=== PATIENT | female | born 1945 | race Caucasian/White ===

== ENCOUNTER → 2020-02-04 12:28 | Outpatient (CLI) | payer MEDICARE, OTHER, SELFPAY ==
--- NOTE | 2020-02-04 | DI.MRI.S_ITS ---
PROCEDURE: MR SHOULDER RT WO CON INDICATIONS: Unspecified rotator cuff tear or rupture TECHNIQUE: Noncontrast oblique coronal T2 fast spin echo with fat saturation, oblique sagittal T1 spin echo and T2 fast spin echo with fat saturation, axial T1 spin echo and T2 fast spin echo with fat saturation through the shoulder. COMPARISON: [facility], MR, SHOULDER WITHOUT CONTRAST, 02/01/2016, 14:56. FINDINGS: Image quality: Excellent. Rotator cuff: There is full-thickness rupture of distal supraspinatus and anterior to mid fibers of distal infraspinatus at their insertions on humeral head with up to 3.9 centimeter medial retraction of torn tendon fibers to the level of glenoid. Posterior fibers of distal infraspinatus shows moderate grade articular surface partial-thickness tear. Distal subscapularis tendinosis and low to moderate grade intrasubstance partial-thickness tear is seen. Sagittal images demonstrate moderate to severe supraspinatus muscle atrophy. Bones and bursae: No bone marrow contusions or fractures. Moderate acromioclavicular joint and glenohumeral joint osteoarthritic changes are seen. Moderate amount of subacromial subdeltoid bursal fluid is also noted. Capsule and soft tissues: In the absence of intra-articular contrast, there is suggestion of focal superior anterior labral tear at 12 to 1 o'clock position. The glenohumeral ligaments appear intact. The long head of the biceps tendinosis and low-grade partial-thickness tear is seen. The rotator interval appears normal, without fibrosis. The coracohumeral ligament is normal in thickness. IMPRESSION: 1. Full-thickness rupture of distal supraspinatus and anterior to mid fibers of distal infraspinatus with up to 3.9 centimeter medial retraction of torn tendon fibers to the level of glenoid. Tendinosis and moderate grade articular surface partial-thickness tear involving posterior fibers of distal infraspinatus. Distal subscapularis tendinosis and low to moderate grade intrasubstance partial-thickness tear. Moderate to severe supraspinatus muscle atrophy. 2. Moderate acromioclavicular joint and glenohumeral joint osteoarthritis. Moderate amount of joint fluid and subacromial subdeltoid bursal fluid. 3. Finding is suspicious for focal superior anterior labral tear at 12 to 1 o'clock position. 4. Tendinosis and low grade intrasubstance partial-thickness tear involving proximal intra-articular portion of long head of biceps. Dictated by: Kartik Car M.D. on 02/04/2020 at 14:17 Approved by: Kartik Car M.D. on 02/04/2020 at 14:24
== END ==
PROVIDERS: PCP Internal Medicine; Referring Provider Internal Medicine; Visit Provider Orthopaedic Surgery
DX: M75.121 Complete rotator cuff tear or rupture of right shoulder, not specified as traumatic (principal); M19.011 Primary osteoarthritis, right shoulder; S46.111A Strain of muscle, fascia and tendon of long head of biceps, right arm, initial encounter
CPT/HCPCS: 73221

== ENCOUNTER → 2020-08-20 12:29 | Outpatient (CLI) | payer MEDICARE, OTHER, SELFPAY ==
--- NOTE | 2020-08-20 12:33 | DI.CT.S_ITS ---
PROCEDURE: CT UE RT WO CON INDICATIONS: Unspecified rotator cuff tear or rupture of right shoulder TECHNIQUE: Noncontrast 1-1.5 mm thick sections acquired from the acromioclavicular joint to the inferior scapula, with coronal and sagittal reformatting. COMPARISON: None. FINDINGS: Image quality: Excellent. Bones: Moderate acromioclavicular joint and glenohumeral joint osteoarthritic changes are seen with inferior marginal osteophyte formation. No acute fracture or dislocation. No suspicious intraosseous lesion. Visualized right upper ribs are grossly intact. Superior migration of humeral head in relation to glenoid is seen. Soft tissues: There is suggestion of high-grade partial to full-thickness rupture of distal supraspinatus at its insertion on the humeral head. Moderate supraspinatus muscle atrophy is seen. No evidence of full-thickness rupture involving distal subscapularis or infraspinatus is seen. No abnormal soft tissue calcifications. There is small to moderate amount of glenohumeral joint effusion. IMPRESSION: 1. Finding is concerning for high-grade partial-thickness to full-thickness rupture involving distal supraspinatus at its insertion on the humeral head. Moderate supraspinatus muscle atrophy. No full-thickness rupture involving distal infraspinatus or subscapularis. No abnormal soft tissue calcification. Small to moderate joint effusion. 2. Moderate acromioclavicular and glenohumeral joint osteoarthritis. No fracture or dislocation. No suspicious intraosseous lesion. Dictated by: Kartik Car M.D. on 08/20/2020 at 16:44 Approved by: Kartik Car M.D. on 08/20/2020 at 16:47
== END ==
PROVIDERS: PCP Internal Medicine; Referring Provider Orthopaedic Surgery; Visit Provider Orthopaedic Surgery
DX: M75.111 Incomplete rotator cuff tear or rupture of right shoulder, not specified as traumatic (principal); M19.011 Primary osteoarthritis, right shoulder
CPT/HCPCS: 73200

== ENCOUNTER → 2020-08-25 10:57 | Outpatient (CLI) | payer MEDICARE, OTHER, SELFPAY ==
[2020-08-25 12:05] LABS: Add Manual Diff / Slide Review NO; Basophils Absolute Auto 0 /uL (0-100); Basophils Percent Auto 0.7 % (0-2); Eosinophils Absolute Auto 200 /uL (0-450); Eosinophils Percent Auto 3.7 % (2-4); Hematocrit 40.5 % (36-46); Hemoglobin 13.7 g/dL (12.0-16.0); Lymphocytes Absolute Auto 1000 /uL (1100-4500); Lymphocytes Percent Auto 20.9 % (25-40); Mean Corpuscular Hemoglobin 31.6 PG (26-34); Mean Corpuscular Volume 93.2 fL (80-100); Monocytes Absolute Auto 600 /uL (0-900); Monocytes Percent Auto 13.9 % (3-14); Neutrophils Absolute Auto 2800 /uL (1500-7000); Neutrophils Percent Auto 60.8 % (50-75); Platelet Count 180 X10^3/uL (150-400); Red Blood Cell Count 4.34 X10^6/uL (4.0-5.2); Red Cell Distribution Width 13.4 % (11.6-14.8); White Blood Cell Count 4.6 X10^3/uL (4.5-11.0)
[2020-08-25 12:41] LABS: BUN Creatinine Ratio 33.3 (6-22); Blood Urea Nitrogen 22 mg/dL (7-17); Calcium 9.6 mg/dL (8.4-10.2); Carbon Dioxide 31 mmol/L (22-32); Chloride 99 mmol/L (98-107); Estimated Glomerular Filt Rate > 60.0 mL/min (>60); Glucose 138 mg/dL (80-110); HEMOLYSIS < 15 (0-50); Potassium 4.3 mmol/L (3.4-5.1); Sodium 137 mmol/L (137-145)
== END ==
PROVIDERS: PCP Internal Medicine; Referring Provider Orthopaedic Surgery; Visit Provider Orthopaedic Surgery
DX: Z01.818 Encounter for other preprocedural examination (principal); Z01.812 Encounter for preprocedural laboratory examination
CPT/HCPCS: 36415; 80048; 85025; 93005; 93010

== ENCOUNTER → 2020-09-01 11:40 | Outpatient (CLI) | payer MEDICARE, OTHER, SELFPAY ==
[2020-09-01 12:26] LABS: COVID19 -Nasal RAPID Negative (Negative)
== END ==
PROVIDERS: PCP Internal Medicine; Visit Provider Student in an Organized Health Care Education/Training Program
DX: Z20.822 Contact with and (suspected) exposure to COVID-19 (principal)
CPT/HCPCS: 87635; C9803

== ENCOUNTER 2020-09-02 10:24 | Inpatient (IN) | payer MEDICARE, OTHER, SELFPAY ==
[2020-09-02] VITALS (15 sets, daily range): BP systolic 99–135; BP diastolic 51–75; PULSE 83–107; RESP 8–20; TEMP 35.9–36.9; O2SAT 90–98; BMI 32.9
[2020-09-02] MEDS: LACTATED RINGERS 1,000 ML 42 ML IV ×2 (06:53→09:45)
[2020-09-02] MEDS: ACETAMINOPHEN 325 MG TABLET 975 MG PO ×2 (07:31→19:49)
--- NOTE | 2020-09-02 07:33 | PM.PREOP ---
Pre-operative Note COVID-19 COVID-19 status: Negative Result date/Date tested (Pos, Neg/Pending): 08/31/20 Interval Note History & Physical reviewed/Exam performed by Physician: Yes Changes to H&P: No
[2020-09-02] MEDS: VANCOMYCIN 1,000 MG/200 ML PIGGYBACK 200 MG IV (08:11)
[2020-09-02] MEDS: GENTAMICIN 200 MG in SODIUM CHLORIDE 0.9% 100 ML 105 ML IV (08:13)
--- NOTE | 2020-09-02 08:37 | SUR.OPER ---
Beach chair with Maquet shoulder positioner. Lower body on padded OR bed. Head in foam padded head cradle, secured with straps. Non-operative arm secured <90 degrees abduction. Pillow under knees. Safety belt at thigh. Cloth tape over blanket over lower legs.
--- NOTE | 2020-09-02 08:39 | PM.PROC.1 ---
Procedures Date/Time Date of procedure: 09/02/20 Time of procedure: 07:57 Nerve Block Time out performed: Yes Nerve blocks: brachial plexus (ISB) Procedure successful: Yes Patient tolerated procedure: well and no complications Complications: none Additional comments: Interscalene Block for post-op pain at surgeon request. Patient was positioned, IV, O2, monitors and rescue meds available. Prepped, timeout performed. Target identified under continuous ultrasound guidance. 18mL of bupivicaine 0.5% injected with intermittent aspiration. Picture taken and saved on machine (used the ED ultrasound for adequate nerve visualization, but lacks a printer; will attempt to upload the picture to EMR). No blood, no paresthesias, no acute complications. Britni WORKMAN Anesthesiologist
[2020-09-02] MEDS: LIDOCAINE 1% W/EPI 20 ML INJ (08:47)
[2020-09-02] MEDS: ONDANSETRON 4 MG/2 ML INJ IV (10:27)
[2020-09-02] MEDS: OXYCODONE IR 5 MG TABLET PO (10:27)
--- NOTE | 2020-09-02 10:28 | DI.RAD.S_ITS ---
PROCEDURE: XR SHOULDER RT MIN 2V INDICATIONS: Total shoulder arthroplasty TECHNIQUE: 2 views of the shoulder were acquired. COMPARISON: [facility] Julienne Sánchez, ALIN, XR SHOULDER 2+ VIEWS BILATERAL, 08/11/2020, 13:45. [facility] ALIN Lincoln, XR SHOULDER MIN 2VW RT, 01/18/2016, 11:10. FINDINGS: Bones: Patient is status post right shoulder reverse arthroplasty with anatomic right shoulder alignment. No fractures or dislocations. No suspicious bony lesions. Visualized ribs appear intact. Soft tissues: Expected postsurgical changes are noted in right shoulder soft tissue. IMPRESSION: Postop changes from right shoulder reverse arthroplasty with anatomic shoulder alignment. Dictated by: Kartik Car M.D. on 09/02/2020 at 10:56 Approved by: Kartik Car M.D. on 09/02/2020 at 10:57
--- NOTE | 2020-09-02 10:46 | PM.OP.1 ---
Operative Date/Time/Diagnoses Date of procedure: 09/02/20 Time of procedure: 08:00 Pre-op diagnosis: Right rotator cuff arthropathy Post-op diagnosis: same Procedure & Clinicians Procedure: Right reverse total shoulder arthroplasty Same procedure as scheduled: Yes Indications: Rotator cuff arthropathy Surgeon: Irvin Gilbert Sand Polisher: Wilber Whittaker Anesthesia Type: General and Peripheral nerve block Operative Notes Findings: Rotator cuff arthropathy with a high-riding humeral head and complete loss of rotator cuff. Closure Type: primary Specimen(s): none sent Applied: implant(s) (24 mm +2 lateralized base plate with a 33+4 glenosphere, 3 glenosphere locking screws 24 mm 28 mm and 16 mm size 6 humeral stem with a 36 neutral suture cup 36+ 3 humeral insert) Estimated Blood Loss (mL): 100 Blood products transfused: none Procedure in detail: On date of service, Patient was met in the holding area. The operative site was signed and witnessed by the OR staff. The surgeries once again discussed with the patient and any remaining questions they had were answered fully. Patient was taken back to the operating theater and placed on the operating table in a supine position. Great care was taken to ensure that all bony prominences were properly padded. Patient was then placed into the beach chair position. The head and neck were properly positioned and secured. A timeout was performed verifying patient's name, procedure, and the operative site. The upper extremity was then prepped and draped in the normal sterile fashion. Previously, the bony anatomy and incision were marked out as well as injected with Marcaine with epinephrine. A deltopectoral approach was performed. 10 blade was used to incise the skin and fascial tissue. A deep knife was used to continue sharp dissection until the cephalic vein was visualized. The cephalic vein was dissected free allowing us to expose the deltopectoral interval. This interval was then developed. A Daugherty elevator was used to free up the deltoid of any scarring both superficially as well as deeply. The vein and the deltoid were taken laterally while the pectoralis was taken medially. This gave us good visualization of the strap muscles. The clavipectoral fascia was removed and the strap muscles were then retracted medially with the pectoralis. Patient had a significant high riding humeral head with articulation with the acromial arch. Patient had complete loss of the entire rotator cuff except for teres minor. The entire head was free of any soft tissue attachment. Patient had end-stage arthritic changes to the humeral head as well as the glenoid with large osteophytes anterior inferiorly as well as posteriorly. A Ronger was then used to remove the osteophytes. An intramedullary guide was placed for the humeral cut. The head was removed. In a protective plate was placed to protect the osteotomy site. We then turned our attention to the glenoid. The degenerative anterior and inferior capsular tissue was removed. This was followed by removing the degenerative labral tissue from around the glenoid as well as the biceps insertion. This gave us good visualization of the glenoid. Guide pin was placed in the center of the glenoid. This gave us a good idea of the ventral screw length. Cannulated drill bit was placed over the guidewire and drilled. This was followed by a small Reamer then by the actual Reamer for the glenoid sphere which measured out to be a 33 mm. Copious irrigation was performed after all drilling and reaming. Once the glenoid was reamed the center hole was tapped. A 24 mm base plate was screwed into place. Locking screws were then placed superior and inferiorly is wears anteriorly and posteriorly. We had very good screw lengths for 3 out of the for. The anterior screw was not place due to the small nature of the amount of bone. Once the base placed was securely fixated to the glenoid the glenoid sphere was impacted into place in the center screw was placed for additional fixation. The area was then copiously irrigated and we turned our attention to the humerus. We Return to our attention back to the humerus. The humerus was then reamed and broached. Trial stem was placed and then reamed for the placement of the cup. Trial liners were trialed as well and the shoulder was reduced and taken through range of motions. The +3 liner provided the most optimal stability. The trial components were removed and the final components were impacted into the humerus. A +3 liner was placed in the shoulders was reduced and taken through range of motion and was felt to be quite stable. The shoulder was copiously irrigated with pulse lavage and a drain was placed. The shoulder was closed in layered fashion and patient was extubated and taken to the PACU in stable condition. Complications: none Post-operative Condition: stable Disposition: PACU Plan for aftercare: Patient will follow our postoperative protocol for reverse total shoulder arthroplasty
--- NOTE | 2020-09-02 10:59 | SUR.PREOP ---
Block start time [0750] . Monitoring initiated and maintained throughout procedure. No Oxygen and medications given per anesthesiologist instructions. Patient remained stable throughout procedure, no adverse reactions noted. Block end time [0800].
[2020-09-02] MEDS: LACTATED RINGERS 1,000 ML 125 ML IV ×2 (11:38→19:50)
--- NOTE | 2020-09-02 12:00 | PC.NURSE ---
Pt to room 203 via bed from PACU. Pt is awake, alert and oriented. Spouse Tai is at the bedside. Pt oriented to room, call light, bed controls, and tv controls. Bed alarm is on for safety and Pt agrees to call as needed and not to get up without help. Med list confirmed. Pt denies pain, nausea, or shortness of breath. SCD's are on and running. Pt denies needs at this time.
--- NOTE | 2020-09-02 13:20 | PT.IIE ---
Current Diagnoses Unspecified rotator cuff tear or rupture of right shoulder, not specified as traumatic (09/02/20) Complete rotator cuff tear or rupture of right shoulder, not specified as traumatic (09/02/20) Impingement syndrome of left shoulder (09/02/20) Surgery Performed Operation Date: 09/02/20 07:45 Actual Procedures p Total Shoulder Arthroplasty - Reverse(Right) - Irvin Gilbert MD Surgical History (Last Updated 08/31/20 @ 11:50 by Olive Gray, RN) History of appendectomy History of lumpectomy (~2009) Hx of cholecystectomy S/P right unicompartmental knee replacement Medical History (Last Updated 08/31/20 @ 11:57 by Olive Gray, RN) History of breast cancer Impingement syndrome, shoulder, left Rotator cuff arthropathy of right shoulder Rotator cuff tear arthropathy of right shoulder Physical Therapy Inpatient Evaluation/Re-Eval M1 PT/OT-IP Prior Functional Status Start: 09/02/20 14:12 Freq: NEEDED Status: Active Protocol: Document 09/02/20 13:20 AB (Rec: 09/02/20 14:28 AB [id number]) Medical Review Prior Functional Status Medical History Reviewed Yes Communication pt is agreeable to do PT Mobility and Gait pt stated that she is independent with all mobilities and ambulation without AD Social History Household Members spouse Living Arrangements House Number of Floors (Floors) One Floor Number of Stairs To Enter/Railing? 2 steps with B rails to enter Home Environment High Toilet,Walk in Shower, Built-In Shower Seat Home Equipment Straight Cane,Shower Seat without Backrest,Hand Held Shower,Grab Bars In Shower M2 PT-IP Current Condition Start: 09/02/20 14:12 Freq: NEEDED Status: Active Protocol: Document 09/02/20 13:20 AB (Rec: 09/02/20 14:28 AB [email or web address]) Physical Therapy Current Condition Current Condition Evaluation Date 09/02/20 Treatment Diagnosis s/p R reverse TSA; difficulty in walking Onset Date 09/02/20 Precautions Shoulder Precautions Sling,Internal Rotation to Body,No External Rotation,No Abduction,Forward Flexion to 90 degrees Weight Bearing Status Weight Bearing Status Non-Weight Bearing Allowed Weight Bearing Amount (enter % RUE NWB or #) (%) M3 PT-IP Subjective Start: 09/02/20 14:12 Freq: NEEDED Status: Active Protocol: Document 09/02/20 13:20 AB (Rec: 09/02/20 14:28 AB [id number]) Subjective Physical Therapy Visit Type Type Initial Evaluation Visit Start Time 13:20 Visit Stop Time 14:00 Total Visit Minutes 40 Number of BILLET INSPECTOR Visits 0 Physical Therapy Visit Comments Patient Comments pt is agreeable to do PT Therapy Pain Assessment Pain Present Pain Present Denied Pain M4 PT-IP Mobility and Gait Start: 09/02/20 14:12 Freq: NEEDED Status: Active Protocol: Document 09/02/20 13:20 AB (Rec: 09/02/20 14:28 AB [id number]) PT-Bed Mobility Assessment Supine to Sit Supine to Sit Maximum Assistance Sit to Supine Sit to Supine Standby Assistance Scooting Scooting to Edge of Bed Contact Guard Assistance PT-Transfer Assessment Sit to and From Stand Sit to and from Stand Minimal Assistance Equipment Transfer Assistive Device None Orthotic/Prosthetic Devices or Brace: Yes Transfers Transfer Destination Bedside Commode Transfer Technique took a few steps without AD Transfer Ability Level of Assist Minimal Assistance,1 Person Assistance,Use of Upper Extremities Comments Mobility Comments educated pt on shoulder precautions and sling management. assisted pt with adjusting sling. Spouse will be here tomorrow at 9am for caregiver training. pt still has numbness and no motor control on Relbow and minimal on R hand. pt completed supine to sit max A and max cues and has to use bed rail to assist. pt was able to sit on EOB CGA. c/o dizziness. BP: 158/82. pt requesting to use the toilet. completed sit to stand min A and started to ambulate ~ 3 ft without AD min A but instructed to just sit down on bedside commode due to pt's unsteadiness with ambulation and c/o dizziness. pt completed sit to stand from the bedside commode min A and was able to walk back to the bed ~ 3 ft min A without AD and completed sit to supine SBA. positioned pt in bed. call light and table placed within reach. Gait Assessment Gait Gait Assistance Required: Minimum Assistance Distance (Feet) 3 Able to Maintain Weight Bearing Status Yes During Gait Assistive Devices Assistive Device None,Gait Belt Orthotic/Prosthetic Devices or Brace: Yes Gait Deviations General Gait Pattern Antalgic,Decreased Stride Length,Decreased Feet Clearance,Step-to Gait Factors Limiting Gait Function Factors Limiting Gait Function Decreased Activity Tolerance, Decreased Strength,Difficulty Following Directions,Limited Range of Motion,Poor Balance, Poor Safety Awareness Comments Gait Comments pls refer to mobility section for details pt presents with unsteady waddling gait PT-Balance Assessment Sitting Balance and Reactions Static Sitting Balance Ability Good Dynamic Sitting Balance Ability Good Standing Balance and Reactions Static Standing Balance Ability Fair Dynamic Standing Balance Ability Poor Device Used without AD M5 PT-IP Objective Assessments Start: 09/02/20 14:12 Freq: NEEDED Status: Active Protocol: Document 09/02/20 13:20 AB (Rec: 09/02/20 14:28 AB [email or web address]) Orientation Orientation/Cognition Level of Alertness Alert Orientation Name,Place,Situation Language Function Ability No Deficits Noted Safety Awareness Decreased Safety Awareness Memory Description No Deficits Noted Gross Range of Motion Lower Extremity ROM Assessment Within Functional Limits Strength Lower Extremity Strength Hip 4-/5 Knee 4-/5 Sensation Assessment Sensation Light Touch Impaired Proprioception (Position) Impaired Sensation Description Numbness Comments Sensation Comments pt still has numbness on RUE and has decrease motor control Muscle Tone Muscle Tone WNL No Muscle Tone Location Right Upper Extremity Type of Tone Hypotonicity Severity of Tone Moderate,Severe Comments Muscle Tone Comments after surgery hypotonicity M6 PT-IP Treatment Start: 09/02/20 14:12 Freq: NEEDED Status: Active Protocol: Document 09/02/20 13:20 AB (Rec: 09/02/20 14:28 AB [email or web address]) Physical Therapy Treatment Exercises Exercises Elbow Flexion/Extension,Wrist ROM,Hand ROM Education Education Provided Precautions,Weight Bearing Status,Post-Op Packet,Safety M7 PT-IP Assessment and Plan Start: 09/02/20 14:12 Freq: NEEDED Status: Active Protocol: Document 09/02/20 13:20 AB (Rec: 09/02/20 14:28 AB [email or web address]) PT Summary Assessment and Plan Potential Rehabilitation Potential Good Status of Condition at Evaluation Evolving Summary Impairments Pain,ROM,Strength,Balance, Coordination,Sensation,Bed Mobility,Transfers,Gait, Activity Tolerance Assessment Summary pt s/p R reverse TSA and just had surgery this morning. sensation and motor control on RUE is not fully back yet. c /o dizziness affecting mobility and presented with unsteady waddling gait. spouse will be here in the hospital ~ 9 am tomorrow and will conduct caregiver training as well as stair climbing training. will re-assess mobility and if pt continues to be unsafe without AD, will conduct ambulation training SPC/least restrictive AD. will continue to assess mobility for safety d/c plan. Goals Bed Mobility Goal Standby Assistance Transfer Goal Standby Assistance,Cane Gait Goal Standby Assistance,Cane Gait Distance 200 Other Goals improve ambulation without AD 200 ft SBA up/down 2 steps using 1 rail SBA Days to Meet Goals 5 Frequency of Treatment Frequency Of Treatment Twice a Day Treatment Plan Physical Therapy Treatment Plan Bed Mobility Training,Transfer Training,Gait Training, Therapeutic Exercise,Balance Retraining,Post Op Education, Discharge Planning,Hot or Cold Pack,Neuromuscular Re-ed, Coordination Retraining,Manual Therapy Precautions Shoulder Precautions Sling,Internal Rotation to Body,No External Rotation,No Abduction,Forward Flexion to 90 degrees Recommendations To Nursing Amount of Assist Needed 1 Person Assist Discharge Recommendations PT Discharge Recommendations Home with 24/7 Assist Available,Outpatient PT Transportation Needs at Discharge Private Vehicle
--- NOTE | 2020-09-02 14:19 | PC.NURSE ---
Pt resting in bed. Denies pain. Offered Ibuprofen but she states she has no pain at all. Pt worked with PT who reported that Pt was somewhat dizzy when getting up so went back to bed and Pt states her dizziness resolved quickly. Pt now eating yogurt and denies needs at this time.
--- NOTE | 2020-09-02 17:28 | PC.NURSE ---
Report received, care assumed 1530. A&Ox3. VSS. Denies pain. Altered sensation to operative arm d/t surgical block. Immobility maintained with sling. Pt. earlier experienced dizziness, but that has since resolved. Up to bathroom with 1-person assist.
[2020-09-02] MEDS: DOCUSATE 100 MG CAPSULE PO (21:38)
[2020-09-03 00:35] VITALS: BP 131/69; PULSE 91; RESP 16; TEMP 36.4; O2SAT 95
--- NOTE | 2020-09-03 02:58 | PC.NURSE ---
At approx 0200, this RN was notified that the hemovac was accidentally removed, unclear how. Pt had been educated at start of shift on how to care for hemovac, reasoning for placement, and this RN reminded pt to be careful of the tubing. The hemovac was then tucked and secured to pt's person. Approx 10 mL sanguinous drainage present in hemovac at time of discovery. Pt denies any headache, dizziness, nausea. Dressing remains CDI.
[2020-09-03 04:18] VITALS: BP 147/69; PULSE 94; RESP 16; TEMP 36.6; O2SAT 95
[2020-09-03 06:27] LABS: Hematocrit 31.2 % (36-46); Hemoglobin 10.6 g/dL (12.0-16.0); Mean Corpuscular HGB Conc 34.1 % (30-36); Mean Corpuscular Volume 93.9 fL (80-100); Platelet Count 133 X10^3/uL (150-400); Red Blood Cell Count 3.32 X10^6/uL (4.0-5.2); Red Cell Distribution Width 13.2 % (11.6-14.8); White Blood Cell Count 6.1 X10^3/uL (4.5-11.0)
[2020-09-03 07:10] VITALS: BP 126/64; PULSE 86; RESP 14; TEMP 36.5; O2SAT 98
[2020-09-03] MEDS: ACETAMINOPHEN 325 MG TABLET 975 MG PO (07:41)
[2020-09-03] MEDS: MULTIVITAMIN 1 TABLET 1 TAB PO (08:43)
[2020-09-03] MEDS: CALCIUM CARBONATE 500 MG TAB PO (08:43)
[2020-09-03] MEDS: TELMISARTAN 40 MG TABLET PO (08:43)
[2020-09-03] MEDS: ASPIRIN EC 81 MG TABLET PO (08:43)
[2020-09-03] MEDS: DOCUSATE 100 MG CAPSULE PO (08:43)
[2020-09-03] MEDS: SIMVASTATIN 20 MG TABLET PO (08:43)
[2020-09-03] MEDS: TOLTERODINE LA 4 MG PO (09:14)
--- NOTE | 2020-09-03 09:29 | P.DS_ITS ---
History of Present Illness History of Present Illness Date Patient Seen: 09/03/20 Time Patient Seen: 09:30 Chief complaint: *OPB* STATUS ROLLED TO *IP* Narrative: Please refer to previously documented HPI and chart. Discharge Providers Provider Date of admission: 09/02/20 10:24 Discharge Date: 09/03/20 Primary care physician: Marta Mijares MD Consults: 09/02/20 07:35 Consult to Anesthesiology Routine Comment: Consulting Provider: Anesthesiologist Reason for consultation: Post operative pain managment 09/02/20 10:24 Consult to Discharge Planning Routine Comment: Consult to Physical Therapy Evaluate & Treat Comment: Physician Instructions: Evaluate and Treat Consult to Respiratory Therapy Evaluate & Treat Comment: Physician Instructions: Evaluate and treat Discharge provider: Billy Hester PA-C Summary Hospital Course Discharge Diagnosis: Right shoulder osteoarthritis and joint instability. Status post total right reverse shoulder arthroplasty Hospital Course: Female 74 years-old with the above listed diagnoses who was consented for the indicated procedure above and presented to the OR undergoing said procedure without difficulty or complication then admitted for rehabilitation convalescing appropriately without significant issue. The patient was stable for discharge home safely today. They verbalized understanding postoperative care instructions and agreed with plan for follow- up. Status at Discharge Cognitive/behavioral status at discharge: oriented Functional status at discharge: independent ambulation Overall status at discharge: patient is progressing back to baseline Time Spent with Patient Time spent: Less than 30 minutes Exam Vital Signs (past 8 hours): - 09/03/20 04:18 09/03/20 07:10 Temperature 97.8 F 97.7 F Pulse Rate 94 H 86 Respiratory Rate 16 14 Blood Pressure 147/69 H 126/64 Pulse Oximetry 95 98 Oxygen Delivery Method Room Air Oxygen Flow Rate 0 Narrative Exam Narrative: Female 74 years-old observed resting comfortably with right arm in sling, in no apparent distress and alert and oriented x3. The patient had a regular rate and normal inspiratory effort. The dressing was clean, dry and intact. Their extremity distal to the effected joint was neurovascularly intact without weakness. There is negligible residual numbness in her right hand from the block. There are no signs or symptoms of DVT bilaterally. Objective Labs Result Diagrams: 09/03/20 06:05 Labs: Laboratory Results - last 24 hr 09/03/20 06:05 WBC 6.1 RBC 3.32 L Hgb 10.6 L Hct 31.2 L MCV 93.9 MCH 32.0 MCHC 34.1 RDW 13.2 Plt Count 133 L PFSH Medical History (Updated 08/31/20 @ 11:57 by Olive Gray RN) History of breast cancer Impingement syndrome, shoulder, left Rotator cuff arthropathy of right shoulder Rotator cuff tear arthropathy of right shoulder Surgical History (Updated 08/31/20 @ 11:50 by Olive Gray RN) History of appendectomy History of lumpectomy (~2009) Hx of cholecystectomy S/P right unicompartmental knee replacement Social History household members: spouse Smoking Status: Never smoker alcohol intake: current Discharge Assessment & Plan Assessment and Plan Assessment: Right shoulder osteoarthritis and joint instability. Status post total right reverse shoulder arthroplasty Plan of Treatment: Discharge home today Reverse total shoulder care protocols apply Follow-up in 2 weeks for re-evaluation or sooner as needed. Discharge Plan Discharge orders & Medications Discharge Orders: Discharge (Order); Ordered 09/03/20 Ordered By: Billy Hester Prescriptions: New oxycodone-acetaminophen [Percocet] 5-325 mg tablet 2 tab PO Q4-6H PRN (Reason: pain) Qty: 60 RF: 0 hydroxyzine pamoate [Vistaril] 25 mg capsule 25 mg PO TID-QID PRN (Reason: spasms) Qty: 60 RF: 0 Continued multivitamin Tablet 1 tab PO DAILY RF: 0 tolterodine 4 mg Capsule,Extended Release 24hr 4 mg PO DAILY RF: 0 calcium carbonate [Calcium 500] 500 mg calcium (1,250 mg) Tablet 500 mg PO DAILY RF: 0 simvastatin [Zocor] 20 mg Tablet 200 mg PO DAILY RF: 0 telmisartan 40 mg Tablet 40 mg PO DAILY RF: 0 aspirin 81 mg Tablet 81 mg PO DAILY RF: 0 Follow up/Referrals: Marta Mijares MD [Primary Care Provider] - Irvin Gilbert MD [Physician] - (Follow-up in 2 weeks for re-evaluation or sooner as needed.) Diet/Activity/Treatments Diet: Diet as Tolerated Activity: Per Physical therapy instructions to remain in sling at all times and follow reverse total shoulder precautions. Cold/Heat Therapy: Ice 20 minutes on per hour as tolerated Skin/Wound/Dressing Care Report to your healthcare provider any signs of infection, such as:: chills, fever, night sweats, increased pain, unusual drainage and unusual redness Dressing: Keep dressing clean, dry and intact. Visit Report/Discharge Packet Instructions: DI for Shoulder Replacement Stand Alone Forms: Surgery Discharge Discharge Data Primary Care Provider: Marta Mijares Quality VTE Deep Vein Thrombosis/Pulmonary Embolism Present on Admission: No
--- NOTE | 2020-09-03 10:33 | CM.DANOTE ---
Addendum entered by Krys Lopez LPN 09/03/20 10:59: Met as planned with pt and her Tai. Joined by LETTY Martinez who will be working with pt today in followup to her session with PT Karla of yesterday. Pt says we are learning how to manage this sling.. P:remains home today with orthopedic followup. Pt and her exressing no concerns re the d/c for today. Original Note: Discharge Planning/Care Management DCP: assessment: case received, EMR reviewed and d/c order noted. No PT note yet available..pt will be seen today. Pt is a 74 year old female who admitted yesterday for a scheduled shoulder surgery. Surgeon: Dr. Gilbert Payer: Medicare and [employer]. Will check in now with pt. CM Discharge Assessment Start: 09/03/20 10:32 Freq: Status: Active Protocol: Document 09/03/20 10:32 ITV (Rec: 09/03/20 10:33 ITV [id number]) Discharge Planning Assessment Advance Directives? No History Provided By Medical Record Prior Living Arrangements House Household Members spouse Is patient alert and oriented? 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
--- NOTE | 2020-09-03 11:15 | PT.IPTN ---
Current Diagnoses Unspecified rotator cuff tear or rupture of right shoulder, not specified as traumatic (09/02/20) Complete rotator cuff tear or rupture of right shoulder, not specified as traumatic (09/02/20) Impingement syndrome of left shoulder (09/02/20) Surgery Performed Operation Date: 09/02/20 07:45 Actual Procedures p Total Shoulder Arthroplasty - Reverse(Right) - Irvin Gilbert MD Physical Therapy Treatment Note M2 PT-IP Current Condition Start: 09/02/20 14:12 Freq: NEEDED Status: Discharge Protocol: Document 09/02/20 13:20 AB (Rec: 09/02/20 14:28 AB [id number]) Physical Therapy Current Condition Current Condition Evaluation Date 09/02/20 Treatment Diagnosis s/p R reverse TSA; difficulty in walking Onset Date 09/02/20 Precautions Shoulder Precautions Sling,Internal Rotation to Body,No External Rotation,No Abduction,Forward Flexion to 90 degrees Weight Bearing Status Weight Bearing Status Non-Weight Bearing Allowed Weight Bearing Amount (enter % RUE NWB or #) (%) M3 PT-IP Subjective Start: 09/02/20 14:12 Freq: NEEDED Status: Discharge Protocol: Document 09/03/20 10:52 CLB (Rec: 09/03/20 13:39 CLB [id number]) Subjective Physical Therapy Visit Type Type Treatment Note Visit Start Time 10:52 Visit Stop Time 11:15 Total Visit Minutes 23 Notes present for CG training Number of OFFICE CLIN ASST Visits 1 Physical Therapy Visit Comments Patient Comments pt is agreeable to do PT Therapy Pain Assessment Pain Present Pain Present Denied Pain M4 PT-IP Mobility and Gait Start: 09/02/20 14:12 Freq: NEEDED Status: Discharge Protocol: Document 09/03/20 10:52 CLB (Rec: 09/03/20 13:39 CLB [id number]) PT-Transfer Assessment Sit to and From Stand Sit to and from Stand Standby Assistance,Contact Guard Assistance Equipment Transfer Assistive Device None Transfers Transfer Destination Chair Transfer Technique walked w/o AD Transfer Ability Level of Assist Standby Assistance,1 Person Assistance Comments Mobility Comments Pt in chair upon arrival. present. Pt and removed sling with guidance from OFFICE CLIN ASST. Pt performed elbow and hand movement. After demonstration pt stood SBA and with hand on table pt hinged at hips with shoulder at 90 degrees. Pt then sat back down and pt assisted pt with donning sling. Pt stood SBA ambulated SBA w/o AD to therapy stairs climbing three steps with left rail SBA, pt then ambulated back to room sitting in chair. Educated pt on dressing and showering. Left pt in chair with all needs within reach and pt present. Informed RN HEMODIALYSIS of pt's mobility. Gait Assessment Gait Gait Assistance Required: Standby Assistance,Contact Guard Assist,1 Person Assist Distance (Feet) 200 Able to Maintain Weight Bearing Status Yes During Gait Assistive Devices Assistive Device None,Gait Belt Orthotic/Prosthetic Devices or Brace: Yes Gait Deviations General Gait Pattern Antalgic,Decreased Stride Length,Decreased Feet Clearance Factors Limiting Gait Function Factors Limiting Gait Function Decreased Activity Tolerance, Decreased Strength,Difficulty Following Directions,Limited Range of Motion,Poor Balance Comments Gait Comments Pt with improved gait, pt ambulated ~200ft w/o AD requiring CGA then able to ambulate SBA. Stair Climbing Assessment Evaluation Level of Assist On Stairs Standby Assistance Devices Stair Climbing Assistive Devices Left Railing Technique/Endurance Stair Climbing Direction Ascend and Descend Stair Climbing Technique Step Over Step Number of Steps Climbed 3 Stair Climbing Set # Repetitions (reps) 1 M5 PT-IP Objective Assessments Start: 09/02/20 14:12 Freq: NEEDED Status: Discharge Protocol: Document 09/02/20 13:20 AB (Rec: 09/02/20 14:28 AB [id number]) Orientation Orientation/Cognition Level of Alertness Alert Orientation Name,Place,Situation Language Function Ability No Deficits Noted Safety Awareness Decreased Safety Awareness Memory Description No Deficits Noted Gross Range of Motion Lower Extremity ROM Assessment Within Functional Limits Strength Lower Extremity Strength Hip 4-/5 Knee 4-/5 Sensation Assessment Sensation Light Touch Impaired Proprioception (Position) Impaired Sensation Description Numbness Comments Sensation Comments pt still has numbness on RUE and has decrease motor control Muscle Tone Muscle Tone WNL No Muscle Tone Location Right Upper Extremity Type of Tone Hypotonicity Severity of Tone Moderate,Severe Comments Muscle Tone Comments after surgery hypotonicity M6 PT-IP Treatment Start: 09/02/20 14:12 Freq: NEEDED Status: Discharge Protocol: Document 09/03/20 10:52 CLB (Rec: 09/03/20 13:39 CLB [id number]) Physical Therapy Treatment Exercises Exercises Elbow Flexion/Extension,Wrist ROM,Hand ROM Education Education Provided Precautions,Weight Bearing Status,Post-Op Packet,Safety M7 PT-IP Assessment and Plan Start: 09/02/20 14:12 Freq: NEEDED Status: Discharge Protocol: Document 09/03/20 10:52 CLB (Rec: 09/03/20 13:39 CLB [id number]) PT Summary Assessment and Plan Potential Rehabilitation Potential Good Status of Condition at Evaluation Evolving Summary Impairments Pain,ROM,Strength,Balance, Coordination,Sensation,Bed Mobility,Transfers,Gait, Activity Tolerance Progress Towards Goals Progressing Toward Goals Assessment Summary Pt improving with all mobility . Pt able to ambulate ~200ft with CGA then SBA w/o AD. Pt able to climb three steps SBA. Pt's able to assist with donning/doffing sling and gives pt appropriate cues for safety. Goals Bed Mobility Goal Standby Assistance Transfer Goal Standby Assistance,Cane Gait Goal Standby Assistance,Cane Gait Distance 200 Other Goals improve ambulation without AD 200 ft SBA up/down 2 steps using 1 rail SBA Days to Meet Goals 5 Frequency of Treatment Frequency Of Treatment Twice a Day Treatment Plan Physical Therapy Treatment Plan Bed Mobility Training,Transfer Training,Gait Training, Therapeutic Exercise,Balance Retraining,Post Op Education, Discharge Planning,Hot or Cold Pack,Neuromuscular Re-ed, Coordination Retraining,Manual Therapy Precautions Shoulder Precautions Sling,Internal Rotation to Body,No External Rotation,No Abduction,Forward Flexion to 90 degrees Recommendations To Nursing Amount of Assist Needed 1 Person Assist Discharge Recommendations PT Discharge Recommendations Home with 25/12 Assist Available,Outpatient PT Transportation Needs at Discharge Private Vehicle
--- NOTE | 2020-09-03 12:33 | PC.NURSE ---
Pt alert and oriented offers no overt c/o pain or issues. Pt expects to go home today. in for teaching. IV d/c'd intact. Surgical site intact. Sling present and helpful. Pt and comfortable with ues of sling. Instructions for discharge given by RN and PT. Pt escorted to car via w/c. Pt discharged to care of .
== END 2020-09-03 12:03 | disposition home or self-care (01) | DRG 483 ==
LOC: OR 09-03 09:20 → AC 09-03 09:20
PROVIDERS: Admitting Provider Orthopaedic Surgery; PCP Internal Medicine; Referring Provider Orthopaedic Surgery; Visit Provider Orthopaedic Surgery
PROC: 0RRJ00Z Replacement of Right Shoulder Joint with Reverse Ball and Socket Synthetic Substitute, Open Approach (ICD-10-PCS; CPT 23472; principal; 2020-09-02 07:45)
DX: M75.121 Complete rotator cuff tear or rupture of right shoulder, not specified as traumatic (principal); M75.42 Impingement syndrome of left shoulder; Z20.822 Contact with and (suspected) exposure to COVID-19
CPT/HCPCS: 36415; 64450; 73030; 85027; 87635; 97116; 97162; 97530; C1776; C9803; J0330; J1100; J2405; J2704; J3010

== ENCOUNTER → 2022-01-31 13:50 | Outpatient (CLI) | payer MEDICARE, OTHER, SELFPAY ==
[2020-09-02 11:09] VITALS: BMI 32.9
--- NOTE | 2022-01-31 | DI.MG.S_ITS ---
BILATERAL DIGITAL SCREENING MAMMOGRAM 3D/2D WITH CAD POST LUMPECTOMY: 01/31/2022 CLINICAL: Routine screening. Personal history of left breast cancer. Family history of breast cancer. Comparison is made to exams dated: 01/10/2021 mammogram, 11/06/2019 mammogram, and 10/23/2018 mammogram - [facility]. Both breasts are almost entirely fatty (category a/<25% glandular tissue). Current study was also evaluated with a Computer Aided Detection (CAD) system. There is a stable benign area of fat necrosis in the left breast. There also are benign vascular calcifications in the right breast. Additionally, there are benign post operative findings in the left breast. No significant masses, calcifications, or other findings are seen in either breast. There has been no significant interval change. IMPRESSION: BENIGN There is no mammographic evidence of malignancy. A 1 year screening mammogram is recommended. This exam was interpreted at Station ID: [id number]. NOTE: For mammograms, a report in lay terms will be sent to the patient. Approximately 15% of breast malignancies will not be visualized mammographically. In the management of a palpable breast mass, a negative mammogram must not discourage biopsy of a clinically suspicious lesion. Electronically Signed By: Carito álvarez/natali:01/31/2022 15:59:28 letter sent: Normal Exam ACR BI-RADS Category 2: Benign Finding(s) [id number]
== END ==
PROVIDERS: PCP Internal Medicine; Referring Provider Internal Medicine; Visit Provider Internal Medicine
DX: Z12.31 Encounter for screening mammogram for malignant neoplasm of breast (principal); Z85.3 Personal history of malignant neoplasm of breast; Z80.3 Family history of malignant neoplasm of breast
CPT/HCPCS: 77063; 77067

== ENCOUNTER → 2022-05-02 12:35 | Outpatient (CLI) | payer MEDICARE, OTHER, SELFPAY ==
[2020-09-02 11:09] VITALS: BMI 32.9
--- NOTE | 2022-05-02 12:37 | DI.RAD.S_ITS ---
PROCEDURE: FL BARIUM SWALLOW INDICATIONS: Dysphagia COMPARISON: Non. FINDINGS: Function: There is severe esophageal dysmotility. Moderate gastroesophageal reflux is present. There is obstruction a calibrated barium tablet at the gastroesophageal junction. Morphology: There is focal narrowing of the distal esophagus near the gastroesophageal junction. There is a small sliding hiatal hernia. In addition, there is a paraesophageal hiatal hernia left of the distal esophagus. Limited images of the stomach demonstrate normal appearance. IMPRESSION: 1. Narrowing of the distal esophagus at the gastroesophageal junction causing obstruction of the calibrated barium tablet. Recommend EGD for follow-up evaluation. 2. Severe esophageal dysmotility. 3. Small sliding hiatal hernia. 4. In addition, there is a paraseptal to hiatal hernia. A differential diagnosis is a distal esophageal diverticulum. 5. Moderate gastroesophageal reflux. Dictated by: Bianca Vernon M.D. on 05/03/2022 at 8:07 Approved by: Bianca Vernon M.D. on 05/03/2022 at 8:14
== END ==
PROVIDERS: PCP Internal Medicine; Referring Provider Surgery; Visit Provider Surgery
DX: K22.4 Dyskinesia of esophagus (principal); K21.9 Gastro-esophageal reflux disease without esophagitis; K44.9 Diaphragmatic hernia without obstruction or gangrene; R13.19 Other dysphagia
CPT/HCPCS: 74220

== ENCOUNTER → 2022-05-19 10:01 | Outpatient (CLI) | payer MEDICARE, OTHER, SELFPAY ==
[2020-09-02 11:09] VITALS: BMI 32.9
[2022-05-19 10:34] LABS: COVID19 -Nasal RAPID Negative (Negative)
== END ==
PROVIDERS: PCP Internal Medicine; Visit Provider Surgery
DX: Z01.812 Encounter for preprocedural laboratory examination (principal); Z20.822 Contact with and (suspected) exposure to COVID-19
CPT/HCPCS: 87635; C9803

== ENCOUNTER 2022-05-22 11:05 | Day surgery (SDC) | payer MEDICARE, OTHER, SELFPAY ==
[2020-09-02 11:09] VITALS: BMI 32.9
[2022-05-22 11:33] VITALS: BP 159/87; PULSE 89; RESP 18; TEMP 35.8; O2SAT 100; BMI 32.9
--- NOTE | 2022-05-22 11:36 | PM.HP.1 ---
History of Present Illness History of Present Illness Date Patient Seen: 05/22/22 Time Patient Seen: 12:07 Chief complaint: EGD Narrative: Dysphagia, sticks in the lower esophagus. Barrium swallow shows a long benign stricture distal esophagus and esophageal dysmotility. Food sticking has been going on for 3 years, just intermittent. Is not on PPI. Patient History Medical History History of breast cancer Impingement syndrome, shoulder, left Rotator cuff arthropathy of right shoulder Rotator cuff tear arthropathy of right shoulder Surgical History History of appendectomy History of lumpectomy (~2009) Hx of cholecystectomy S/P right unicompartmental knee replacement Family & Social History Social History: household members spouse Tobacco & Substance use: Smoking Status Never smoker alcohol intake current alcohol intake frequency 0-2 drinks per day Substance Use Type does not use Meds Home Medications and Allergies Home Medications Medication Instructions Recorded Confirmed Type multivitamin 1 tab PO DAILY 08/31/20 05/22/22 History telmisartan 40 mg tablet 40 mg PO DAILY 08/31/20 05/22/22 History tolterodine 4 mg capsule,extended 4 mg PO DAILY 08/31/20 05/22/22 History release 24 hr amlodipine 2.5 mg tablet 2.5 mg PO DAILY 04/17/22 05/22/22 History simvastatin 20 mg tablet (Zocor) 20 mg PO DAILY 04/17/22 05/22/22 History Allergies Allergy/AdvReac Type Severity Reaction Status Date / Time Sulfa (Sulfonamide Allergy Severe Anaphylaxis Verified 05/22/22 11:44 Antibiotics) sulfamoxole Allergy Severe Anaphylaxis Verified 05/22/22 11:44 Review of Systems Review of Systems ROS: Yes All systems reviewed with the patient and are negative except as otherwise documented Exam Const General: cooperative and comfortable Nutritional Appearance: obese Orientation: alert and oriented x3 HENMT Head: normal to inspection, normocephalic and atraumatic Nose: external nose normal Face and sinus: normal facial exam Eyes General: appearance normal, both eyes and all related structures Sclera: sclerae normal Neck Neck: trachea midline Chest Chest: normal inspection of the chest Resp Effort & Inspection: normal respiratory effort and able to speak in complete sentences Cardio Rate: regular rate Rhythm: abnormal rhythm GI Inspection: normal to inspection Palpation: soft Skin General: atrophy Neuro General: patient alert, patient awake and patient oriented x3 Cognition: normal cognition Extrem General: full ROM Psych Affect: normal affect Attitude: cooperative Judgment: judgment good Assessment & Plan Assessment & Plan narrative: Esophageal dysphagia with abnormal barium swallow. Plan: EGD with esophageal dilation, PPI BID for 2 weeks then daily referral to Deborah Crabtree MD for esophageal dismotility COVID-19 COVID-19 status: Negative Time Spent With Patient Time with patient: less than 30 minutes Critical Care time: I spent a total of [] minutes of critical care time on this patient's care today; this time is exclusive of procedural time.
[2022-05-22] MEDS: LACTATED RINGERS 1,000 ML 84 ML IV (11:50)
[2022-05-22] MEDS: fentaNYL 100 MCG/2 ML INJ 50 MCG IV (12:23)
[2022-05-22] MEDS: MIDAZOLAM 5 MG/5 ML VIAL 4 MG IV (12:23)
--- NOTE | 2022-05-22 12:34 | P.OP.EGD_ITS ---
Operative Date/Time/Diagnoses Date of procedure: 05/22/22 Time of procedure: 12:34 Pre-op diagnosis: Dysphagia Post-op diagnosis: same Procedure & Clinicians Study performed: EGD with dilation using a moderate sedation Same procedure as scheduled: Yes Indications: Dysphagia and barium swallow showing a distal esophageal stricture Surgeon: Supriya Pineda Procedure Notes Procedure in detail: Preop diagnosis: Dysphagia Postop diagnosis: Same Procedure: EGD with dilation using moderate sedation Surgeon: Yessica Pineda MD Anesthetic is fentanyl 50 mcg, Versed 4 mg Findings: Mild gastritis with inflammatory gastric polyps. Small hiatal hernia. Distal esophageal stricture without difficulty I was able to pass the scope into the stomach. Procedure: Patient placed in a supine position. Scope inserted into the esophagus advanced into the stomach identified the pylorus intubated and the duodenum. Insufflation and extraction of the scope and the above findings. I then placed the scope into the stomach and passed the dilating wire into the stomach dilated the balloon D cyst slated the balloon pulled it into the proper position and insufflated again without significant resistance. Balloon was collapsed and taken from the stomach. Patient was awakened and taken to recovery room in stable condition. Blood loss: None Specimen: None Impression: Benign distal esophageal stricture related to chronic reflux. Res tart PPI, dilation done this hospitalization. Dysmotility of the esophagus and the high probability of recurrent dysphagia, referral to Deborah Crabtree MD at [facility] as forget surgeon. Sedation minutes: 9 Findings: gastritis, hiatal hernia and stricture Specimen(s): none sent Complications: none Post-procedure Plan for aftercare: Call for appointment with Deborah Crabtree MD at [facility] for further workup of eso phageal dismotility. Follow up: as needed Disposition: PACU
[2022-05-22 12:37] VITALS: BP 148/79; PULSE 81; RESP 14; TEMP 36.3; O2SAT 97
[2022-05-22 12:42] VITALS: BP 142/81; PULSE 83; RESP 16; O2SAT 97
[2022-05-22 12:47] VITALS: BP 147/80; PULSE 86; RESP 20; O2SAT 96
[2022-05-22 12:51] VITALS: BP 150/77; PULSE 78; RESP 20; O2SAT 98
[2022-05-22 13:08] VITALS: BP 159/87; PULSE 89; RESP 16; TEMP 36.2; O2SAT 100
== END 2022-05-22 13:24 | disposition home or self-care (01) ==
PROVIDERS: PCP Internal Medicine; Referring Provider Surgery; Visit Provider Surgery
PROC: 0DJ08ZZ Inspection of Upper Intestinal Tract, Via Natural or Artificial Opening Endoscopic (ICD-10-PCS; CPT 43235; principal; 2022-05-22 12:45)
DX: R13.10 Dysphagia, unspecified (principal); K22.2 Esophageal obstruction; K44.9 Diaphragmatic hernia without obstruction or gangrene; K29.70 Gastritis, unspecified, without bleeding; K31.7 Polyp of stomach and duodenum
CPT/HCPCS: 43249; J2250; J3010

== ENCOUNTER → 2022-06-08 16:02 | Outpatient (CLI) | payer MEDICARE, OTHER, SELFPAY ==
[2020-09-02 11:09] VITALS: BMI 32.9
--- NOTE | 2022-06-08 | DI.MRI.S_ITS ---
PROCEDURE: MR LUMBAR SPINE WO CON INDICATIONS: spinal stenosis, lumbar region TECHNIQUE: Noncontrast sagittal T1 spin echo and T2 fast echo, sagittal STIR, and T2 fast spin echo through the lumbar spine. In cases with scoliosis, additional coronal T2 fast spin echo may be performed. COMPARISON: [facility] [place], CR, XR LUMBAR SPINE 2 OR 3 VIEWS, 06/07/2022, 14:33. FINDINGS: Image quality: Excellent. Alignment and Curvature: 5 lumbar type vertebral bodies are present by plain film. 2 mm of retrolisthesis of L1 on L2. 4 mm of anterolisthesis of L4 on L5. 4 mm of anterolisthesis of L5 on S1. Mild diffuse rightward curvature of the mid/upper lumbar spine. Bone Marrow: Marrow is of normal overall signal. No acute vertebral body compression fractures. There is mild reactive signal throughout the endplates of the visualized thoracolumbar spine. Spinal Cord: Conus medullaris terminates at the mid L2 level. Visualized cord demonstrates normal signal and size. Paraspinous Soft Tissues: No paravertebral masses. T12-L1: Moderate disc desiccation. Mild disc height loss and diffuse disc bulge. Mild facet and ligamentum flavum hypertrophy. Mild canal stenosis. No foraminal stenosis. L1-L2: Moderate disc height loss and desiccation. Mild diffuse disc bulge with superimposed central disc extrusion which extends inferiorly within the anterior epidural space. Mild facet hypertrophy. Mild epidural lipomatosis. Mild canal stenosis. Mild bilateral foraminal stenosis. L2-L3: Moderate disc desiccation. Moderate diffuse disc bulge with superimposed central extrusion which extends superiorly within the anterior epidural space. Mild facet and ligamentum flavum hypertrophy. Mild epidural lipomatosis. Mild canal stenosis. Mild bilateral foraminal stenosis. L3-L4: Severe disc height loss and desiccation. Mild diffuse disc bulge/osteophyte. Moderate facet and ligamentum flavum hypertrophy. Mild epidural lipomatosis. Moderate canal stenosis. Mild right and moderate left foraminal stenosis. L4-L5: Moderate disc height loss and desiccation. Mild diffuse disc bulge. Mild facet and ligamentum flavum hypertrophy. Mild epidural lipomatosis. Moderate canal stenosis. Mild bilateral foraminal stenosis. L5-S1: Moderate disc desiccation. Mild disc height loss and diffuse disc bulge. Mild bilateral facet hypertrophy. Mild canal stenosis. No foraminal stenosis. IMPRESSION: 1. Multilevel degenerative disc and facet disease, as well as ligamentum flavum hypertrophy and epidural lipomatosis. 2. Multilevel canal stenoses, worst at L3-L4 and L4-L5 where there are moderate canal stenosis. 3. Multilevel foraminal stenoses, worst at L3-L4 where there is moderate foraminal stenosis. Dictated by: Davina Chaudhary M.D. on 06/09/2022 at 13:19 Transcribed by: DILMA on 06/09/2022 at 13:23 Approved by: Davina Chaudhary M.D. on 06/09/2022 at 16:24
== END ==
PROVIDERS: PCP Internal Medicine; Referring Provider Orthopaedic Surgery Foot and Ankle Surgery; Visit Provider Orthopaedic Surgery Foot and Ankle Surgery
DX: M48.062 Spinal stenosis, lumbar region with neurogenic claudication (principal); M48.07 Spinal stenosis, lumbosacral region; M51.36 Other intervertebral disc degeneration, lumbar region; M51.37 Other intervertebral disc degeneration, lumbosacral region; M47.816 Spondylosis without myelopathy or radiculopathy, lumbar region; M47.817 Spondylosis without myelopathy or radiculopathy, lumbosacral region
CPT/HCPCS: 72148

== ENCOUNTER → 2023-02-08 12:53 | Outpatient (CLI) | payer MEDICARE, OTHER, SELFPAY ==
[2020-09-02 11:09] VITALS: BMI 32.9
--- NOTE | 2023-02-08 | DI.MG.S_ITS ---
BILATERAL DIGITAL SCREENING MAMMOGRAM 3D/2D WITH CAD: 02/08/2023 CLINICAL: Routine screening. Personal history of left breast cancer. Comparison is made to exams dated: 01/31/2022 mammogram - [facility], 01/10/2021 mammogram, and 11/06/2019 mammogram - [facility]. There are scattered areas of fibroglandular density in both breasts (category b / 25%-50% glandular tissue). Current study was also evaluated with a Computer Aided Detection (CAD) system. There are post operative changes from prior lumpectomy in the left breast. No significant masses, calcifications, or other findings are seen in either breast. IMPRESSION: BENIGN Status post left lumpectomy. No mammographic evidence of malignancy. A 1 year screening mammogram is recommended. This exam was interpreted at Station ID: [id number]. NOTE: For mammograms, a report in lay terms will be sent to the patient. Approximately 15% of breast malignancies will not be visualized mammographically. In the management of a palpable breast mass, a negative mammogram must not discourage biopsy of a clinically suspicious lesion. Electronically Signed By: Kelly graff/:02/13/2023 11:57:36 letter sent: Normal Exam ACR BI-RADS Category 2: Benign Finding(s) 3342F
== END ==
PROVIDERS: PCP Internal Medicine; Referring Provider Internal Medicine; Visit Provider Internal Medicine
DX: Z12.31 Encounter for screening mammogram for malignant neoplasm of breast (principal)
CPT/HCPCS: 77063; 77067

== ENCOUNTER → 2023-03-14 12:53 | Outpatient (CLI) | payer MEDICARE, OTHER, SELFPAY ==
[2020-09-02 11:09] VITALS: BMI 32.9
[2023-03-14 13:28] LABS: Add Manual Diff / Slide Review NO; Basophils Absolute Auto 0 /uL (0-100); Basophils Percent Auto 0.9 % (0-2); Eosinophils Absolute Auto 200 /uL (0-450); Hematocrit 38.7 % (36-46); Lymphocytes Absolute Auto 1000 /uL (1100-4500); Lymphocytes Percent Auto 23.5 % (25-40); Mean Corpuscular HGB Conc 33.7 % (30-36); Mean Corpuscular Hemoglobin 31.2 PG (26-34); Mean Corpuscular Volume 92.7 fL (80-100); Monocytes Absolute Auto 600 /uL (0-900); Monocytes Percent Auto 12.7 % (3-14); Neutrophils Absolute Auto 2600 /uL (1500-7000); Neutrophils Percent Auto 58.9 % (50-75); Platelet Count 170 X10^3/uL (150-400); Red Blood Cell Count 4.18 X10^6/uL (4.0-5.2); Red Cell Distribution Width 14.2 % (11.6-14.8); White Blood Cell Count 4.3 X10^3/uL (4.5-11.0)
[2023-03-14 13:36] LABS: Hemoglobin A1C% w Est Avg Glu 5.7 % (4.0-6.0)
[2023-03-14 13:58] LABS: BUN Creatinine Ratio 32.8 (6-22); Blood Urea Nitrogen 20 mg/dL (7-17); Calcium 9.8 mg/dL (8.4-10.2); Carbon Dioxide 29 mmol/L (22-32); Chloride 100 mmol/L (98-107); Estimated Glomerular Filt Rate > 60 mL/min (>60); Glucose 116 mg/dL (80-110); HEMOLYSIS < 15 (0-50); Potassium 4.2 mmol/L (3.4-5.1); Sodium 136 mmol/L (137-145)
== END ==
PROVIDERS: PCP Internal Medicine; Referring Provider Orthopaedic Surgery Adult Reconstructive Orthopaedic Surgery; Visit Provider Orthopaedic Surgery Adult Reconstructive Orthopaedic Surgery
DX: Z01.818 Encounter for other preprocedural examination (principal); R73.9 Hyperglycemia, unspecified; Z01.812 Encounter for preprocedural laboratory examination
CPT/HCPCS: 36415; 80048; 83036; 85025; 93005

== ENCOUNTER 2023-04-02 06:21 | Day surgery (SDC) | payer MEDICARE, OTHER, SELFPAY ==
[2020-09-02 11:09] VITALS: BMI 32.9
[2023-03-26 08:41] VITALS: BMI 35.8
[2023-04-02] VITALS (14 sets, daily range): BP systolic 101–161; BP diastolic 47–80; PULSE 68–96; RESP 13–22; TEMP 35.9–36.4; O2SAT 91–99; BMI 33.8
--- NOTE | 2023-04-02 06:00 | DI.RAD.S_ITS ---
PROCEDURE: XR KNEE LT 1TO2V INDICATIONS: TKA TECHNIQUE: 2 view(s) of the knee acquired. COMPARISON: None. FINDINGS: Bones: Patient is status post knee joint arthroplasty. Hardware components are in expected positions. Visualized bony structures are intact. Soft tissues: Overlying postoperative changes are noted. IMPRESSION: Expected postoperative appearance of the total knee arthroplasty. Dictated by: Ramses Magaña M.D. on 04/02/2023 at 12:00 Approved by: Ramses Magaña M.D. on 04/02/2023 at 12:01
[2023-04-02] MEDS: LACTATED RINGERS 1,000 ML 42 ML IV ×3 (06:52→11:13)
[2023-04-02] MEDS: ACETAMINOPHEN 325 MG TABLET 975 MG PO (06:52)
[2023-04-02] MEDS: MELOXICAM 7.5 MG TABLET PO (06:52)
--- NOTE | 2023-04-02 07:33 | PM.PREOP ---
Pre-operative Note Interval Note History & Physical reviewed/Exam performed by Physician: Yes Changes to H&P: No
[2023-04-02] MEDS: CEFAZOLIN 2 GM/100 ML PREMIX 100 ML IV ×3 (07:52→23:31)
[2023-04-02] MEDS: TRANEXAMIC ACID 1,000 MG VIAL 1000 MG INJ ×2 (08:00→10:15)
--- NOTE | 2023-04-02 08:38 | SUR.OPER ---
Supine on padded OR bed. Pillow under head, arms secured on padded armboards <90 degree abduction. Safety belt across torso. Non-operative leg secured with tape over blanket over lower leg. Operative leg prepped to field, padded paint roller knee positioner and padded lateral thigh post positioned by surgeon.
[2023-04-02] MEDS: ROPIVACAINE/EPI/CLONIDINE/KET 50 ML SYRINGE INJ (08:54)
--- NOTE | 2023-04-02 10:47 | PM.OP.1 ---
Operative Date/Time/Diagnoses Date of procedure: 04/02/23 Pre-op diagnosis: Left knee arthritis Post-op diagnosis: same Procedure & Clinicians Procedure: Left total knee arthroplasty Same procedure as scheduled: Yes Surgeon: Jeferson Norris Phone Triage Specialist: Edward Martinez Anesthesia Type: Spinal, Peripheral nerve block and Local Operative Notes Prosthetic devices, grafts, tissues, transplants, or devices: [employer] legion size 5 narrow cruciate retaining Oxinium femoral component with size 3 tibial base plate with 10 mm x 100 mm stem and 9 mm ultra congruent polyethylene insert with undersurface patella Estimated Blood Loss (mL): 250 Tourniquet time (min): 108 Procedure in detail: This 77-year-old female patient was evaluated in clinic and diagnosed with full-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 Operative and nonoperative treatment were discussed at length and the patient elected to proceed with surgery. Risks and benefits were explained in full. All questions were answered. The patient was met in the preoperative holding area the day of surgery and the operative site was marked. Informed consent was obtained. The patient was wheeled back to the operating room and spinal anesthesia was induced. She was placed supine on the operating table. Are operating room staff included DANIEL Lentz and his assistance was necessary for positioning, soft tissue retraction, wound closure, patient transfers. Without him the surgery would not have been feasible. A time-out procedure was performed verifying the correct patient operative site comorbidities and allergies. Tranexamic acid and Ancef were administered. The patient was prepped and draped in the usual sterile fashion and a tourniquet was inflated. I began by making an anterior incision centered over the patella and the medial aspect of the tibial tubercle. I dissected down to the VMO and identified the lateral border of the VMO in order to perform a medial parapatellar arthrotomy. A medial release was performed distally and soft tissue was dissected off the anterior femur at the notch point. Fat pad was resected laterally around the patellar tendon to allow visualization laterally. The patella was everted in extension and osteophytes were excised, a limited lateral release was performed off the lateral border of the patella, and a lateral facetectomy was performed. Moving to the femur we brought the knee into extension and placed retractors around the femur. I opened the canal and inserted the intramedullary josep up the femur to obtain a mechanical axis reference. I cut the femur at 5? relative to the anatomic axis and a +0 mm cut. Retractors were removed and the knee was hyperflexed and externally rotated. Retractors were placed around the tibia and an intramedullary drill was used to open up the canal. An intramedullary reference was used off of the medial side, cutting 4 mm relative to the area of most wear. I noted that there was potentially insufficient slope and that cut while referencing off of the jig. It was challenging to get the smallest spacer block in in terminal extension in the back of the knee however I was able to fit it in the front of the knee. This may be concerned that I had cut inadequate slope. I therefore moved to extramedullary referencing and took a +2 mm cut relative to my initial intramedullary referenced cut. This did cut significant additional slope into the tibia. The varus valgus angle of my extramedullary reference cut was very similar to that of my intramedullary cut. I then placed the smallest spacer block which was a 9 mm spacer block and found that it fit appropriately. I used the soft tissue tensioner and dialed it up to 40 and found that the dial indicated appropriate soft tissue balance. I moved to the femur again and flexed the knee and placed a 3 degree resection drill hole using the measured resection guide. I then placed the tensioner at 90? of flexion with the tensioner flush to the face of the femur and flushed to the face of the tibia and opened it again to 40. This gave me a reading of 15. I had had a reading of 11 in extension so I shifted my flexion gap by 4 mm to equalize my flexion and extension gaps. I sized for a size 5 femur and placed the 4 in 1 block. I used the same spacer block as I had an extension on the size 5 cutting block and internally and externally rotated through the hip and found that I had appropriate equal soft tissue tension between those 2. Being satisfied with this soft tissue tension in flexion I then cut the anterior and posterior and chamfers through the 4 in 1 block. A lamina link trainer maintenance worker was placed laterally and tensioned to allow removal of the medial meniscus and medial osteophytes. It was then moved laterally to allow resection of the lateral meniscus and lateral osteophytes. I infiltrated the soft tissues with a mixture of ropivacaine epinephrine clonidine and Toradol, about 50 mL which was placed in the VMO patellar tendon MCL and posterior capsule. Trials were placed and I found that flexion and extension gaps were equal, I had minimal medial or lateral opening in either flexion or extension, and the patella tracked appropriately. Being satisfied with this I prepared the tibia. It was a size 3. I drilled for a short stem given the patient's advanced age and relatively high BMI. I irrigated the bone and inserted cement down the tibia. The tibial component with a stem was placed and mallet it down. Moving to the femur, the femur was irrigated and then cemented into place as well. I brought the knee into full extension and allowed the cement to cure. While the cement was curing I performed a low adductor canal block using the residual 10 mm of ropivacaine epinephrine clonidine and Toradol with a blunt-tip needle into the adductor canal in the proximal aspect of the wound. I soaked the soft tissues in a dilute mixture of Betadine and peroxide for 3 minutes. Once the cement was allowed to cure I trialed the knee and determined that I was satisfied with the polyethylene size. I removed additional cement around the femoral and tibial components with a osteotome. I inserted the final polyethylene and was satisfied with the motion and stability of the knee. Tourniquet was let down and hemostasis was achieved. The knee was closed using a combination of 1. Vicryl, double-armed 2. Stratafix, 2-0 Stratafix, 2-0 Vicryl, 3-0 Stratafix. Dermabond and Aquacel were applied. An Praful wrap was applied. The patient was transferred off of the operating table after being awoken from anesthesia and taken to the PACU without discernible complications. Post-operative Plan for aftercare: Weightbearing as tolerated DC home today if cleared by PT Aspirin DVT prophylaxis Follow up 2 weeks in our clinic for wound check
--- NOTE | 2023-04-02 11:17 | SUR.PHASEI ---
report given to KIZZY Aguayo
[2023-04-02] MEDS: OXYCODONE IR 5 MG TABLET PO ×4 (11:24→21:21)
[2023-04-02] MEDS: ACETAMINOPHEN 325 MG TABLET 650 MG PO ×3 (12:54→23:28)
[2023-04-02] MEDS: IBUPROFEN 600 MG TABLET PO ×3 (12:54→23:27)
[2023-04-02] MEDS: LACTATED RINGERS 1,000 ML 100 ML IV (12:55)
--- NOTE | 2023-04-02 15:14 | PT.IIE ---
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) Hx of cholecystectomy (1980) S/P right unicompartmental knee replacement (2015) Medical History (Last Updated 03/26/23 @ 09:08 by Stephanie Winn RN) GERD (gastroesophageal reflux disease) History of breast cancer (2009) History of COVID-19 (01/2023) HLD (hyperlipidemia) HTN (hypertension) Impingement syndrome, shoulder, left Rotator cuff arthropathy of right shoulder Rotator cuff tear arthropathy of right shoulder Physical Therapy Inpatient Evaluation/Re-Eval M1 PT/OT-IP Prior Functional Status Start: 04/02/23 13:32 Freq: NEEDED Status: Active Protocol: Document 04/02/23 15:14 AW (Rec: 04/02/23 15:32 AW [id number]) Medical Review Prior Functional Status Medical History Reviewed Yes Communication WNL. Pt is an effective verbal communicator. Mobility and Gait Independent without assistive device. Stairs had become challenging and pt did have a fall in the past few months but denies falls being a regular occurrence. Activities of Daily Living and IADL's Needs occasional assist with dressing but is otherwise independent with basic ADL's. Social History Household Members spouse Living Arrangements House Number of Floors (Floors) One Floor Number of Stairs To Enter/Railing? 2 NICOLE with narrow bilateral rails (can reach both at the same time). Home Environment High Toilet,Walk in Shower Home Equipment Four Wheel Walker,Straight Cane,Shower Seat without Backrest Employment Status Retired Additional Social History Comment Pt lives with her spouse, Tai. Her daughter (an OR nurse) will stay with her for a week when she goes home). M2 PT-IP Current Condition Start: 04/02/23 13:32 Freq: NEEDED Status: Active Protocol: Document 04/02/23 15:14 AW (Rec: 04/02/23 15:32 AW [id number]) Physical Therapy Current Condition Current Condition Evaluation Date 04/02/23 Treatment Diagnosis L TKA; impaired mobility and gait Onset Date 04/02/23 M3 PT-IP Subjective Start: 04/02/23 13:32 Freq: NEEDED Status: Active Protocol: Document 04/02/23 15:14 AW (Rec: 04/02/23 15:32 AW [id number]) Subjective Physical Therapy Visit Type Type Initial Evaluation Visit Start Time 14:25 Visit Stop Time 15:14 Total Visit Minutes 49 Notes Pt's daughter is present throughout assessment. Physical Therapy Visit Comments Patient Comments Pt is willing to work with PT, would like to use the commode Therapy Pain Assessment Pain When Pain Assessed During Mobility Pain Present Pain Present Pain Reported Location Left knee Intensity 6 Scale Used Numeric (0 - 10) Description With Movement Pain Management Techniques Apply Cold,Distraction,Re- positioning,Timing of Activity with Medications M4 PT-IP Mobility and Gait Start: 04/02/23 13:32 Freq: NEEDED Status: Active Protocol: Document 04/02/23 15:14 AW (Rec: 04/02/23 15:32 AW [id number]) PT-Bed Mobility Assessment Supine to Sit Supine to Sit Moderate Assistance,1 Person Assistance,Head of Bed Elevated,Bedrails Scooting Scooting to Edge of Bed Contact Guard Assistance PT-Transfer Assessment Sit to and From Stand Sit to and from Stand Contact Guard Assistance,Use of Upper Extremities Equipment Transfer Assistive Device Front Wheeled Walker Orthotic/Prosthetic Devices or Brace: No Transfers Transfer Destination Chair,Bedside Commode Transfer Technique Stand Step Pivot Transfer Ability Level of Assist Contact Guard Assistance, Minimal Assistance,Use of Upper Extremities Comments Mobility Comments Pt was found resting in bed, drowsy but with good attention once awakened. She was very willing to participate with PT and completed ankle pumps, quad sets, and AAROM heel slides prior to mobilizing. She sat up to EOB with mod assist, good sitting balance once situated. She was able to scoot forward for feet flat on floor before standing to FWW with CGA. LLE pain increased with weightbearing and pt worked hard to offload LLE with BUE on the walker. She step pivot [place] [facility] to min assist. After voiding her bladder, she completed pericare without assist. She stood CGA and took steps to transfer to the chair where she remained end of session with legs elevated and call light handy. Gait Assessment Gait Gait Assistance Required: Contact Guard Assist Distance (Feet) 3 Able to Maintain Weight Bearing Status Yes During Gait Assistive Devices Assistive Device Front Wheeled Walker Gait Deviations General Gait Pattern Antalgic,Decreased Stride Length,Decreased Feet Clearance,Flexed Trunk,Wide Based Gait Factors Limiting Gait Function Factors Limiting Gait Function Decreased Strength,Pain Comments Gait Comments Steps taken during transfer only. PT-Balance Assessment Sitting Balance and Reactions Static Sitting Balance Ability Good Dynamic Sitting Balance Ability Good Standing Balance and Reactions Static Standing Balance Ability Good Dynamic Standing Balance Ability Fair Device Used FWW M5 PT-IP Objective Assessments Start: 04/02/23 13:32 Freq: NEEDED Status: Active Protocol: Document 04/02/23 15:14 AW (Rec: 04/02/23 15:32 AW [id number]) Orientation Orientation/Cognition Level of Alertness Alert Orientation Name,Day of Week,Place, Situation Language Function Ability No Deficits Noted Safety Awareness Understands Safety Issues Gross Range of Motion Lower Extremity ROM Assessment Left Impaired Impairments painful knee ROM, tolerates PROM>AAROM 0-30 in supine. Strength Lower Extremity Strength Assessment Left Impaired Hip 3-/5 Knee 3-/5 Ankle 4/5 Comments Strength Comments RLE grossly 4/5 proximally to 4+/5 distally Other Assessments Other Other Assessments Pt has history of R TSA and recent fall on LUE resulted in left shoulder pain but ROM and strength are functional for transfers with FWW. M6 PT-IP Treatment Start: 04/02/23 13:32 Freq: NEEDED Status: Active Protocol: Document 04/02/23 15:14 AW (Rec: 04/02/23 15:32 AW [id number]) Physical Therapy Treatment Exercises Exercises Ankle Pumps,Quad Sets,Heel Slides,Passive Knee Extension Hang,Seated Knee Flexion/ Extension Education Education Provided Weight Bearing Status,Post-Op Packet,Safety M7 PT-IP Assessment and Plan Start: 04/02/23 13:32 Freq: NEEDED Status: Active Protocol: Document 04/02/23 15:14 AW (Rec: 04/02/23 15:32 AW [id number]) PT Summary Assessment and Plan Potential Status of Condition at Evaluation Evolving Summary Impairments Pain,ROM,Strength,Balance,Bed Mobility,Transfers,Gait Assessment Summary Laura is a 77 yo woman seen for PT evaluation in the immediate post operative setting following L TKA. History includes R unilateral knee arthroplasty. PLOF: Pt does not use any DME to ambulate. She is mostly independent with basic ADL's. CLOF: Pt is requiring mod assist for bed mobility and CGA/min assist for transfers using FWW. She is very motivated and will have her daughter and spouse to assist at home upon discharge. PT anticipates pt will be able to discharge home with assist and outpatient PT (scheduled to begin on 04/10) once medically stable. PT recommends pt acquire a FWW and a BSC for home use. PT will continue to progress her functional mobility including stair navigation while she remains hospitalized. Goals Bed Mobility Goal Standby Assistance Transfer Goal Standby Assistance,Front Wheeled Walker Gait Goal Standby Assistance,Front Wheel Walker Gait Distance 75 Other Goals - up/down 2 steps using bilateral rails with CGA Days to Meet Goals 2 Frequency of Treatment Frequency Of Treatment Twice a Day Treatment Plan Physical Therapy Treatment Plan Bed Mobility Training,Transfer Training,Gait Training, Therapeutic Exercise,Balance Retraining,Post Op Education, Discharge Planning,Hot or Cold Pack,Neuromuscular Re-ed Other Recommendations and Next Treatment ther ex, stairs, cont gait Focus training Weight Bearing Status Weight Bearing Status Weight Bear as Tolerated Recommendations To Nursing Amount of Assist Needed 1 Person Assist Discharge Recommendations PT Discharge Recommendations Home with Assistance, Outpatient PT Equipment Needed for Home Before FWW, BSC Discharge Transportation Needs at Discharge Private Vehicle
--- NOTE | 2023-04-02 17:35 | PC.NURSE ---
Patient arrived from PACU this a.m. at 1150 a.m. VSS, afebrile. She is A&Ox4. Dressing to L knee is C/D/I. Patient reports some numbness to bilateral feet dullness, improved as the afternoon went on. She is able to participate with therapy and sit in the chair. She reports pain is minimal at rest but severe with movement. She is able to get to BS with X1 assist using FWW. She voids successfully, and is tolerating dinner well this evening. LR at 100 ml/hr, call light in reach, belongings in reach, encouarged IS use and frequent rounding.
[2023-04-02] MEDS: DOCUSATE 100 MG CAPSULE PO (21:21)
[2023-04-02] MEDS: ATORVASTATIN 20 MG TABLET 10 MG PO (21:21)
[2023-04-02] MEDS: ASPIRIN EC 81 MG TABLET PO (21:22)
[2023-04-02] MEDS: AMLODIPINE 5 MG TABLET 2.5 MG PO (21:22)
[2023-04-02] MEDS: OXYBUTYNIN 5 MG ER TAB 10 MG PO (21:22)
[2023-04-02] MEDS: LOSARTAN 50 MG TABLET PO (21:22)
[2023-04-03] MEDS: LACTATED RINGERS 1,000 ML 100 ML IV (01:17)
[2023-04-03 04:35] VITALS: BP 156/70; PULSE 84; RESP 19; TEMP 36.2; O2SAT 98
[2023-04-03 04:37] LABS: Hematocrit 34.6 % (36-46); Hemoglobin 11.7 g/dL (12.0-16.0)
[2023-04-03] MEDS: ACETAMINOPHEN 325 MG TABLET 650 MG PO ×3 (05:05→18:18)
[2023-04-03] MEDS: IBUPROFEN 600 MG TABLET PO ×3 (05:06→18:18)
--- NOTE | 2023-04-03 07:25 | PM.PNPO.1 ---
Subjective Subjective Date Patient Seen: 04/03/23 Time Patient Seen: 07:26 Interval history: 77-year-old walking back to bed after using the restroom. States her pain is severe. No nausea or vomiting. No fever or chills. Exam Vital Signs (past 8 hours): - 04/02/23 23:30 04/03/23 04:35 Temperature 97.5 F L 97.1 F L Pulse Rate 84 Respiratory Rate 19 19 Blood Pressure 143/67 H 156/70 H Pulse Oximetry 96 98 Oxygen Flow Rate 0 1 Oxygen Delivery Method Room Air Oxygen Flow Rate 1 Narrative Exam Narrative: No apparent distress. Dressing is clean, dry and intact. Motor functions intact bilateral lower extremities. Const General: cooperative Nutritional Appearance: well nourished Orientation: alert Resp Effort & Inspection: normal respiratory effort and able to speak in complete sentences Objective Labs 04/03/23 04:10 Labs: Laboratory Results - last 24 hr 04/03/23 04:10 Hgb 11.7 L Hct 34.6 L PFSH Medical History (Updated 03/26/23 @ 09:08 by Stephanie Winn RN) History of COVID-19 (01/2023) GERD (gastroesophageal reflux disease) HLD (hyperlipidemia) HTN (hypertension) Rotator cuff tear arthropathy of right shoulder Impingement syndrome, shoulder, left Rotator cuff arthropathy of right shoulder History of breast cancer (2009) Surgical History (Updated 03/26/23 @ 08:47 by Stephanie Winn RN) History of esophagogastroduodenoscopy (EGD) (05/22/22) 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) History of appendectomy Hx of cholecystectomy (1980) History of lumpectomy (~2009) S/P right unicompartmental knee replacement (2015) Social History household members: spouse Smoking Status: Never smoker alcohol intake: current Assessment & Plan Post-op Postoperative Procedures: Procedures Operation Date: 04/02/23 07:45 Actual Procedure Side Surgeon p Total Knee Arthroplasty Left Jeefrson Norris MD Postoperative day: 1 Postoperative status: marginal pain control Postoperative status narrative: Stable status post left total knee arthroplasty Postoperative plan narrative: Mobilize with physical therapy, weight-bearing as tolerated Aspirin for DVT prophylaxis Follow up in Orthopedics in 2 weeks for wound check Disposition, home today or tomorrow.
[2023-04-03] MEDS: OXYCODONE IR 5 MG TABLET 10 MG PO ×4 (07:53→18:18)
[2023-04-03 08:00] VITALS: BP 157/65; PULSE 93; RESP 18; TEMP 36.1; O2SAT 95
[2023-04-03] MEDS: DOCUSATE 100 MG CAPSULE PO ×2 (08:35→20:23)
[2023-04-03] MEDS: ASPIRIN EC 81 MG TABLET PO ×2 (08:35→20:23)
--- NOTE | 2023-04-03 11:15 | PT.IPTN ---
Current Diagnoses Unilateral primary osteoarthritis, left knee (04/02/23) Surgery Performed Operation Date: 04/02/23 07:45 Actual Procedures p Total Knee Arthroplasty(Left) - Jeferson Norris MD Physical Therapy Treatment Note M2 PT-IP Current Condition Start: 04/02/23 13:32 Freq: NEEDED Status: Active Protocol: Document 04/02/23 15:14 AW (Rec: 04/02/23 15:32 AW [id number]) Physical Therapy Current Condition Current Condition Evaluation Date 04/02/23 Treatment Diagnosis L TKA; impaired mobility and gait Onset Date 04/02/23 M3 PT-IP Subjective Start: 04/02/23 13:32 Freq: NEEDED Status: Active Protocol: Document 04/03/23 11:53 TS (Rec: 04/03/23 12:17 TS [id number]) Subjective Physical Therapy Visit Type Type Treatment Note Visit Start Time 11:15 Visit Stop Time 11:45 Total Visit Minutes 30 Notes Intitiated caregiver training. Number of COMMERCIAL LOAN OFFICER Visits 1 Physical Therapy Visit Comments Patient Comments Pt found resting in chair, reports having a lot pain in the morning but has been improving, is agreeable to PT. Therapy Pain Assessment Pain When Pain Assessed During Mobility Pain Present Pain Present Pain Reported M4 PT-IP Mobility and Gait Start: 04/02/23 13:32 Freq: NEEDED Status: Active Protocol: Document 04/03/23 11:53 TS (Rec: 04/03/23 12:17 TS [id number]) PT-Transfer Assessment Sit to and From Stand Sit to and from Stand Contact Guard Assistance,Use of Upper Extremities Equipment Transfer Assistive Device Front Wheeled Walker Orthotic/Prosthetic Devices or Brace: No Comments Mobility Comments Daughter was instructed in and performed donning of gait belt prior to mobility. Sit to stand CGA from daughter with use of FWW, demonstrated good carryover of sequencing. She ambulated to restroom and back ~15' CGA from daughter with use of FWW, has a slow antalgic step to gait, had no buckling or LOB. Pt was left in chair with daughter in room , all needs met, RN notified. Gait Assessment Gait Gait Assistance Required: Contact Guard Assist Distance (Feet) 15 Able to Maintain Weight Bearing Status Yes During Gait Assistive Devices Assistive Device Front Wheeled Walker Orthotic/Prosthetic Devices or Brace: No Gait Deviations General Gait Pattern Antalgic,Decreased Stride Length,Decreased Feet Clearance,Flexed Trunk,Step-to Gait,Wide Based Gait Factors Limiting Gait Function Factors Limiting Gait Function Decreased Activity Tolerance, Decreased Strength,Pain,Poor Balance Comments Gait Comments See mobility comments. PT-Balance Assessment Sitting Balance and Reactions Static Sitting Balance Ability Good Dynamic Sitting Balance Ability Good Standing Balance and Reactions Static Standing Balance Ability Good Dynamic Standing Balance Ability Fair Device Used FWW M5 PT-IP Objective Assessments Start: 04/02/23 13:32 Freq: NEEDED Status: Active Protocol: Document 04/02/23 15:14 AW (Rec: 04/02/23 15:32 AW [id number]) Orientation Orientation/Cognition Level of Alertness Alert Orientation Name,Day of Week,Place, Situation Language Function Ability No Deficits Noted Safety Awareness Understands Safety Issues Gross Range of Motion Lower Extremity ROM Assessment Left Impaired Impairments painful knee ROM, tolerates PROM>AAROM 0-30 in supine. Strength Lower Extremity Strength Assessment Left Impaired Hip 3-/5 Knee 3-/5 Ankle 4/5 Comments Strength Comments RLE grossly 4/5 proximally to 4+/5 distally Other Assessments Other Other Assessments Pt has history of R TSA and recent fall on LUE resulted in left shoulder pain but ROM and strength are functional for transfers with FWW. M6 PT-IP Treatment Start: 04/02/23 13:32 Freq: NEEDED Status: Active Protocol: Document 04/03/23 11:53 TS (Rec: 04/03/23 12:17 TS [id number]) Physical Therapy Treatment Education Education Provided Weight Bearing Status,Post-Op Packet,Safety M7 PT-IP Assessment and Plan Start: 04/02/23 13:32 Freq: NEEDED Status: Active Protocol: Document 04/03/23 11:53 TS (Rec: 04/03/23 12:17 TS [id number]) PT Summary Assessment and Plan Potential Rehabilitation Potential Good Summary Impairments Pain,ROM,Strength,Balance,Bed Mobility,Transfers,Gait Progress Towards Goals Progressing Toward Goals Assessment Summary Laura is making some progress with her mobility this session . She is CGA for sit to stand with use of FWW. Her standing balance is good with heavy UE assist on FWW. She progressed her gait to ~15' CGA with use of FWW. She has a slow step to antalgic gait with no buckling or LOB. Daughter was present for some caregiver training. She was instructed in and performed donning of gait, sit to stand technique and gait. PT will see pt in afternoon to trial stair training. Pt has 2 steps with rails to get into house. Goals Bed Mobility Goal Standby Assistance Transfer Goal Standby Assistance,Front Wheeled Walker Gait Goal Standby Assistance,Front Wheel Walker Gait Distance 75 Other Goals - up/down 2 steps using bilateral rails with CGA Days to Meet Goals 2 Frequency of Treatment Frequency Of Treatment Twice a Day Treatment Plan Physical Therapy Treatment Plan Bed Mobility Training,Transfer Training,Gait Training, Therapeutic Exercise,Balance Retraining,Post Op Education, Discharge Planning,Hot or Cold Pack,Neuromuscular Re-ed Other Recommendations and Next Treatment ther ex, stairs, cont gait Focus training Weight Bearing Status Weight Bearing Status Weight Bear as Tolerated Recommendations To Nursing Amount of Assist Needed Standby Assistance,1 Person Assist Discharge Recommendations PT Discharge Recommendations Home with Assistance, Outpatient PT Equipment Needed for Home Before BSC Discharge Transportation Needs at Discharge Private Vehicle
--- NOTE | 2023-04-03 15:00 | CM.DANOTE ---
Reviewed EMR for pt's medical status and anticipated home d/c needs. Pt was receiving personal care during this visit, so was unable to meet in person today. Will f/u with her again tomorrow re: d/c plan. Payor: Medicare Attending: Jeferson Norris Pt is a 77 year-old F admitted for a planned total L-knee replacement. She is post-op day-1, reportedly experiencing severe pain this am which has gradually improved throughout the day. Pt has been working on mobilizing her with the plan for increasing weight bearing as tolerated. Pt eval recommendations are for OP PT after her Ortho f/u in 2-weeks for her wound check. Pt resides independently in her own home w/spouse. Her dtr is a RN and will also plan to spend the first week with pt/spouse to assist with care and assistance. No further home d/c needs are identified at this time. Plan is for d/c home either later this evening or tomorrow, pending progress and pain control. DCP will cont. to follow and assist with any further needs identified prior to d/c. Family will transport her home in private vehicle. Discharge Planning/Care Management CM Discharge Assessment Start: 04/03/23 14:54 Freq: Status: Active Protocol: Document 04/03/23 14:54 DPL (Rec: 04/03/23 14:59 DPL [id number]) Discharge Planning Assessment Assigned Hair Spring Winder JEROD Lawler Advance Directives? Yes Advance Directives on File No History Provided By Medical Record Expected Length of Stay 2 Has Patient been admitted in last 30 No days? Prior Living Arrangements House Household Members spouse Comment [place] Independent with ADL's Yes Is patient alert and oriented? Yes Caregiver for Another No DME Already Rented / Owned Elevated Toilet Seat,FWW / Walker,Cane,Bedside Commode Patient/Family Preference OP PT Therapy Barriers to Discharge No Discharge Plan Home Community Services Physical Therapy Transportation Arrangement Family will transport in private vehicle. Referrals Initiated None needed Review Status In Process Please Provide Date Initial DC 04/03/23 Assessment Was Performed Pre-Anesthesia Assessment Start: 03/26/23 08:41 Freq: Status: Complete Protocol: Document 03/26/23 08:41 CAB (Rec: 03/26/23 09:15 CAB [id number]) Pre-Anesthesia Assessment Preferred Name Laura Patient Information Reviewed Via Phone Assessment Assessment Completed With Patient Diagnostic Results BMP/CMP,CBC,EKG Comment Labs/EKG @ [facility] 03/14/23 Primary Care Provider Marta Lowry Seen Specialist in Last 12 Months Yes Specialist Seen Orthopedist Primary Language Afghan Preferred Language Afghan Folder Machine Required No Height 157.48 cm Weight 88.904 kg Body Mass Index (BMI) 35.8 Hearing Ability Normal Visual Impairment No Limitations Visual Assist None Dentition Type Teeth, Natural Present Barriers to Learning None Hx Anesthesia Reactions No Hx Family Anesthesia Reaction No Hx Malignant Hyperthermia No Hx Blood Transfusions No Hx Blood Transfusion Reaction No Anesthesia Review Requested No Biofuels Plant Manager No alcohol intake current alcohol intake frequency a few times a week Smoking Status Never smoker Substance Use Type does not use Pain Present Pain Reported Musculoskeletal Symptoms Abnormal Gait,Difficulty Walking,Joint Pain History of Falling (Recent or History of Yes ) Patient is completely paralyzed or No completely immobile Mental Status Oriented to own ability Is patient on oxygen? No Does patient have TAYLOR/SOB No Hx Sleep Apnea No CPAP/BIPAP use not prescribed Currently Taking a Beta Haim No Hx Chest Pain No Hx SOB No Hx Syncope or Dizziness No Anti-Coagulant Therapy No Has a Store Team Member No Cardiac Testing No Hx Pacemaker/ICD No Pacemaker Rep Required? No Cardiac Clearance Received Not Applicable Diet Type At Home Regular Dysphagia No Gastrointestinal Symptoms Reflux Bladder Pattern Incontinent Urinary Catheter Present No Hx Urinary Self Catheterization No Diabetes No HgbA1C 5.7 Date 03/14/23 Patient No Lactating No Presence of External or Internal Medical Yes: R partial knee Devices replacement, RT shoulder Received a COVID vaccine? Yes: moderna Received all doses? Yes Marital Status Lives With spouse Current Living Arrangements House Number of Floors (Floors) One Floor Support System Child/Children,Spouse Comment Daughter will also be in the home to assist with care at DC Does the Patient Have Assistance After Yes Surgery Patient Discharge Plan Description Return Home Comment Pt not advised on length of stay per surgeon Feels Safe in Current Environment Yes Been Physically Hurt or Threatened By a No Person in Current Environment Do you have thoughts of harming yourself None or others? Are you currently considering suicide? No Do you have a plan to hurt yourself or No Plan others? Do You Have Any Spiritual Beliefs That No May Affect Your HC Choices? Do You Have Any Cultural Practices That No May Affect Your HC Choices? Who Can We Speak to About Patient's Care Family, friends Identifying Code for Release of Patient Declines to issue Information Health Care Proxy/Next of Kin Tai () Health Care Proxy Emergency Contact Name Barbie (daughter) Emergency Contact Advance Directives? Yes Advance Directives on File No Requested Patient Bring Advanced Yes Directives DOS Power of Primary Education Professor No PAC Instructions Do not shave/clip surgical site,Durable medical equipment ,Medications to take/avoid, Nasal antibiotic,No ETOH/ petroleum product on skin DOS, NPO,Post-op transportation,Pre -surgical wash,Sturdy shoes/ comfortable clothes,Do not bring valuables and remove jewelry
--- NOTE | 2023-04-03 15:50 | PT.IPTN ---
Current Diagnoses Unilateral primary osteoarthritis, left knee (04/02/23) Surgery Performed Operation Date: 04/02/23 07:45 Actual Procedures p Total Knee Arthroplasty(Left) - Jeferson Norris MD Physical Therapy Treatment Note M2 PT-IP Current Condition Start: 04/02/23 13:32 Freq: NEEDED Status: Active Protocol: Document 04/02/23 15:14 AW (Rec: 04/02/23 15:32 AW [id number]) Physical Therapy Current Condition Current Condition Evaluation Date 04/02/23 Treatment Diagnosis L TKA; impaired mobility and gait Onset Date 04/02/23 M3 PT-IP Subjective Start: 04/02/23 13:32 Freq: NEEDED Status: Active Protocol: Document 04/03/23 16:15 TS (Rec: 04/03/23 16:30 TS [id number]) Subjective Physical Therapy Visit Type Type Treatment Note Visit Start Time 15:50 Visit Stop Time 16:14 Total Visit Minutes 24 Notes Daughter present Number of ENVIRONMENTAL HEALTH OFFICER Visits 2 Physical Therapy Visit Comments Patient Comments Pt found resting in chair, reports pain is 9/10 with mobility, is agreeable to PT. Therapy Pain Assessment Pain When Pain Assessed During Mobility Pain Present Pain Present Pain Reported Location Left knee Intensity 9 Scale Used Numeric (0 - 10) Description Aching,With Movement Pain Behaviors Facial Grimacing,Restlessness, Wincing Pain Management Techniques Apply Cold,Distraction,Re- positioning,Timing of Activity with Medications M4 PT-IP Mobility and Gait Start: 04/02/23 13:32 Freq: NEEDED Status: Active Protocol: Document 04/03/23 16:15 TS (Rec: 04/03/23 16:30 TS [id number]) PT-Transfer Assessment Sit to and From Stand Sit to and from Stand Contact Guard Assistance,Use of Upper Extremities Equipment Transfer Assistive Device Front Wheeled Walker Orthotic/Prosthetic Devices or Brace: No Comments Mobility Comments Sit to stand with FWW CGA from daughter, pt demonstrated good carryover of sit to stand sequencing. She ambulated in room ~30'CGA with FWW and a slow step to gait. Pt uses heavy UE assist on FWW with minimal wbering on LLE. Pt requested back to chair. Stand to sit CGA, she demonstrated good carryover of sequencing. She performed post-op ex of quad set, ankle pumps and dee dee slide x5. Pt was left in room with daughter, all needs met, RN notified. Gait Assessment Gait Gait Assistance Required: Contact Guard Assist Distance (Feet) 30 Able to Maintain Weight Bearing Status Yes During Gait Assistive Devices Assistive Device Gait Belt,Front Wheeled Walker Orthotic/Prosthetic Devices or Brace: No Gait Deviations General Gait Pattern Antalgic,Decreased Stride Length,Decreased Feet Clearance,Flexed Trunk,Step-to Gait,Wide Based Gait Factors Limiting Gait Function Factors Limiting Gait Function Decreased Activity Tolerance, Decreased Strength,Pain,Poor Balance Comments Gait Comments See mobility comments. Stair Climbing Assessment Comments Stair Climbing Comments Unable at this time PT-Balance Assessment Sitting Balance and Reactions Static Sitting Balance Ability Good Dynamic Sitting Balance Ability Good Standing Balance and Reactions Static Standing Balance Ability Good Dynamic Standing Balance Ability Fair Device Used FWW M5 PT-IP Objective Assessments Start: 04/02/23 13:32 Freq: NEEDED Status: Active Protocol: Document 04/02/23 15:14 AW (Rec: 04/02/23 15:32 AW [id number]) Orientation Orientation/Cognition Level of Alertness Alert Orientation Name,Day of Week,Place, Situation Language Function Ability No Deficits Noted Safety Awareness Understands Safety Issues Gross Range of Motion Lower Extremity ROM Assessment Left Impaired Impairments painful knee ROM, tolerates PROM>AAROM 0-30 in supine. Strength Lower Extremity Strength Assessment Left Impaired Hip 3-/5 Knee 3-/5 Ankle 4/5 Comments Strength Comments RLE grossly 4/5 proximally to 4+/5 distally Other Assessments Other Other Assessments Pt has history of R TSA and recent fall on LUE resulted in left shoulder pain but ROM and strength are functional for transfers with FWW. M6 PT-IP Treatment Start: 04/02/23 13:32 Freq: NEEDED Status: Active Protocol: Document 04/03/23 16:15 TS (Rec: 04/03/23 16:30 TS [id number]) Physical Therapy Treatment Exercises Exercises Ankle Pumps,Quad Sets,Heel Slides Education Education Provided Weight Bearing Status,Post-Op Packet,Safety M7 PT-IP Assessment and Plan Start: 04/02/23 13:32 Freq: NEEDED Status: Active Protocol: Document 04/03/23 16:15 TS (Rec: 04/03/23 16:30 TS [id number]) PT Summary Assessment and Plan Potential Rehabilitation Potential Good Summary Impairments Pain,ROM,Strength,Balance,Bed Mobility,Transfers,Gait Progress Towards Goals Slow Progress due to Pain Assessment Summary Laura is making some progress with her mobility but remains limited by her pain in her L knee. She is CGA for sit to stand with use of FWW. She progressed her gait to ~30' in room CGA with FWW. She has a slow antalgic step to gait with decreased step length and height. She was educated on frequency and instensit of post-op ex. PT continues to recommend home with assist from daughter and spouse. Pt will need to complete 2 steps with PT prior to mobility. Goals Bed Mobility Goal Standby Assistance Transfer Goal Standby Assistance,Front Wheeled Walker Gait Goal Standby Assistance,Front Wheel Walker Gait Distance 75 Other Goals - up/down 2 steps using bilateral rails with CGA Days to Meet Goals 2 Frequency of Treatment Frequency Of Treatment Twice a Day Treatment Plan Physical Therapy Treatment Plan Bed Mobility Training,Transfer Training,Gait Training, Therapeutic Exercise,Balance Retraining,Post Op Education, Discharge Planning,Hot or Cold Pack,Neuromuscular Re-ed Other Recommendations and Next Treatment ther ex, stairs, cont gait Focus training Weight Bearing Status Weight Bearing Status Weight Bear as Tolerated Recommendations To Nursing Amount of Assist Needed 1 Person Assist Discharge Recommendations PT Discharge Recommendations Home with Assistance, Outpatient PT Equipment Needed for Home Before BSC Discharge Transportation Needs at Discharge Private Vehicle
[2023-04-03] MEDS: OXYBUTYNIN 5 MG ER TAB 10 MG PO (20:21)
[2023-04-03] MEDS: ATORVASTATIN 20 MG TABLET 10 MG PO (20:21)
[2023-04-03] MEDS: AMLODIPINE 5 MG TABLET 2.5 MG PO (20:23)
[2023-04-03 20:45] VITALS: BP 144/77; PULSE 95; RESP 19; TEMP 36.6; O2SAT 94
[2023-04-04] MEDS: OXYCODONE IR 5 MG TABLET PO ×2 (00:27→06:08)
[2023-04-04] MEDS: ACETAMINOPHEN 325 MG TABLET 650 MG PO ×3 (00:27→11:37)
[2023-04-04] MEDS: IBUPROFEN 600 MG TABLET PO ×3 (00:27→11:43)
[2023-04-04 07:58] VITALS: BP 130/56; PULSE 85; RESP 16; TEMP 36.3; O2SAT 94
[2023-04-04] MEDS: ASPIRIN EC 81 MG TABLET PO (09:14)
[2023-04-04] MEDS: DOCUSATE 100 MG CAPSULE PO (09:14)
[2023-04-04] MEDS: OXYCODONE IR 5 MG TABLET 10 MG PO ×2 (09:17→12:30)
--- NOTE | 2023-04-04 10:05 | PT.IPTN ---
Current Diagnoses Unilateral primary osteoarthritis, left knee (04/02/23) Surgery Performed Operation Date: 04/02/23 07:45 Actual Procedures p Total Knee Arthroplasty(Left) - Jeferson Norris MD Physical Therapy Treatment Note M2 PT-IP Current Condition Start: 04/02/23 13:32 Freq: NEEDED Status: Active Protocol: Document 04/02/23 15:14 AW (Rec: 04/02/23 15:32 AW [id number]) Physical Therapy Current Condition Current Condition Evaluation Date 04/02/23 Treatment Diagnosis L TKA; impaired mobility and gait Onset Date 04/02/23 M3 PT-IP Subjective Start: 04/02/23 13:32 Freq: NEEDED Status: Active Protocol: Document 04/04/23 10:32 TS (Rec: 04/04/23 10:44 TS [id number]) Subjective Physical Therapy Visit Type Type Treatment Note Visit Start Time 10:05 Visit Stop Time 10:30 Total Visit Minutes 25 Notes Daughter present for caregiver training. Number of PLASTIC PARTS FABRICATOR Visits 3 Physical Therapy Visit Comments Patient Comments Pt found resting in bed, reports pain is better today but having some nausea with gait. Pt agreeable to PT. Therapy Pain Assessment Pain When Pain Assessed During Mobility Pain Present Pain Present Pain Reported M4 PT-IP Mobility and Gait Start: 04/02/23 13:32 Freq: NEEDED Status: Active Protocol: Document 04/04/23 10:32 TS (Rec: 04/04/23 10:44 TS [id number]) PT-Transfer Assessment Sit to and From Stand Sit to and from Stand Contact Guard Assistance,Use of Upper Extremities Equipment Transfer Assistive Device Gait Belt,Front Wheeled Walker Orthotic/Prosthetic Devices or Brace: No Comments Mobility Comments Sit to stand from chair CGA, pt demonstrates good carryover of sit to stand technique. She ambulated ~10', reported some nausea but could continue . She ambulated another ~70 in hallway, required seated rest break in w/c. Sit to stand from w/c CGA with FWW, pt ambulated to stairs. She performed steps x3 with daughter CGA with B handrails , pt had increased difficulty with descending steps. Pt was brought back to room in w/c. Pt was left in bed side chair with daugther, all needs met, RN notified. Gait Assessment Gait Gait Assistance Required: Contact Guard Assist Distance (Feet) 80 Able to Maintain Weight Bearing Status Yes During Gait Assistive Devices Assistive Device Gait Belt,Front Wheeled Walker Orthotic/Prosthetic Devices or Brace: No Gait Deviations General Gait Pattern Antalgic,Decreased Stride Length,Decreased Feet Clearance,Flexed Trunk,Step-to Gait,Wide Based Gait Factors Limiting Gait Function Factors Limiting Gait Function Decreased Activity Tolerance, Decreased Strength,Pain,Poor Balance Comments Gait Comments See mobility comments. Stair Climbing Assessment Evaluation Level of Assist On Stairs Contact Guard Assistance,1 Person Assistance Devices Stair Climbing Assistive Devices Left Railing,Right Railing Technique/Endurance Stair Climbing Direction Ascend and Descend Stair Climbing Technique Step to Step Number of Steps Climbed 3 Comments Stair Climbing Comments See mobility comments PT-Balance Assessment Sitting Balance and Reactions Static Sitting Balance Ability Good Dynamic Sitting Balance Ability Good Standing Balance and Reactions Static Standing Balance Ability Good Dynamic Standing Balance Ability Fair Device Used FWW M5 PT-IP Objective Assessments Start: 04/02/23 13:32 Freq: NEEDED Status: Active Protocol: Document 04/02/23 15:14 AW (Rec: 04/02/23 15:32 AW [id number]) Orientation Orientation/Cognition Level of Alertness Alert Orientation Name,Day of Week,Place, Situation Language Function Ability No Deficits Noted Safety Awareness Understands Safety Issues Gross Range of Motion Lower Extremity ROM Assessment Left Impaired Impairments painful knee ROM, tolerates PROM>AAROM 0-30 in supine. Strength Lower Extremity Strength Assessment Left Impaired Hip 3-/5 Knee 3-/5 Ankle 4/5 Comments Strength Comments RLE grossly 4/5 proximally to 4+/5 distally Other Assessments Other Other Assessments Pt has history of R TSA and recent fall on LUE resulted in left shoulder pain but ROM and strength are functional for transfers with FWW. M6 PT-IP Treatment Start: 04/02/23 13:32 Freq: NEEDED Status: Active Protocol: Document 04/04/23 10:32 TS (Rec: 04/04/23 10:44 TS [id number]) Physical Therapy Treatment Education Education Provided Weight Bearing Status,Post-Op Packet,Safety M7 PT-IP Assessment and Plan Start: 04/02/23 13:32 Freq: NEEDED Status: Active Protocol: Document 04/04/23 10:32 TS (Rec: 04/04/23 10:44 TS [id number]) PT Summary Assessment and Plan Potential Rehabilitation Potential Good Summary Impairments Pain,ROM,Strength,Balance,Bed Mobility,Transfers,Gait Progress Towards Goals Progressing Toward Goals Assessment Summary Laura is making some progression with her mobility this session. She is CGA for sit to stands with FWW, she demonstrates good carryover of sit to stand technique. She progressed her gait to ~80' CGA with use of FWW. She has a slow step to gait with heavy UE support on FWW, had no buckling or LOB. She progressed to stairs x3 CGA from daughter, needing some cues for proper sequencing. PT is recommending return home with assist and outpatient PT. Goals Bed Mobility Goal Standby Assistance Transfer Goal Standby Assistance,Front Wheeled Walker Gait Goal Standby Assistance,Front Wheel Walker Gait Distance 75 Other Goals - up/down 2 steps using bilateral rails with CGA Days to Meet Goals 2 Frequency of Treatment Frequency Of Treatment Twice a Day Treatment Plan Physical Therapy Treatment Plan Bed Mobility Training,Transfer Training,Gait Training, Therapeutic Exercise,Balance Retraining,Post Op Education, Discharge Planning,Hot or Cold Pack,Neuromuscular Re-ed Other Recommendations and Next Treatment ther ex, stairs, cont gait Focus training Weight Bearing Status Weight Bearing Status Weight Bear as Tolerated Recommendations To Nursing Amount of Assist Needed 1 Person Assist Discharge Recommendations PT Discharge Recommendations Home with Assistance, Outpatient PT Equipment Needed for Home Before BSC Discharge Transportation Needs at Discharge Private Vehicle
--- NOTE | 2023-04-04 11:56 | P.DS_ITS ---
History of Present Illness History of Present Illness Date Patient Seen: 04/04/23 Time Patient Seen: 11:56 Chief complaint: Left Total Knee Arthroplasty 04/02 Discharge Providers Provider Discharge Date: 04/04/23 Primary care physician: Marta Lowry MD Consults: 04/02/23 11:40 Consult to Discharge Planning Routine Comment: Consult to Physical Therapy Evaluate & Treat Comment: Physician Instructions: postop TKA protocol Discharge provider: Art Ho PA-C Summary Hospital Course Hospital Course: Procedure: Left total knee arthroplasty Same procedure as scheduled: Yes Surgeon: Jeferson Norris Pharmacist Critical Care: Edward Martinez Anesthesia Type: Spinal, Peripheral nerve block and Local Operative Notes Prosthetic devices, grafts, tissues, transplants, or devices: [employer] legion size 5 narrow cruciate retaining Oxinium femoral component with size 3 tibial base plate with 10 mm x 100 mm stem and 9 mm ultra congruent polyethylene insert with undersurface patella Estimated Blood Loss (mL): 250 Tourniquet time (min): 108 Procedure in detail: This 77-year-old female patient was evaluated in clinic and diagnosed with full- 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 Operative and nonoperative treatment were discussed at length and the patient elected to proceed with surgery. Risks and benefits were explained in full. All questions were answered. The patient was met in the preoperative holding area the day of surgery and the operative site was marked. Informed consent was obtained. The patient was wheeled back to the operating room and spinal anesthesia was induced. She was placed supine on the operating table. Are operating room staff included DANIEL Lentz and his assistance was necessary for positioning, soft tissue retraction, wound closure, patient transfers. Without him the surgery would not have been feasible. A time-out procedure was performed verifying the correct patient operative site comorbidities and allergies. Tranexamic acid and Ancef were administered. The patient was prepped and draped in the usual sterile fashion and a tourniquet was inflated. I began by making an anterior incision centered over the patella and the medial aspect of the tibial tubercle. I dissected down to the VMO and identified the lateral border of the VMO in order to perform a medial parapatellar arthrotomy. A medial release was performed distally and soft tissue was dissected off the anterior femur at the notch point. Fat pad was resected laterally around the patellar tendon to allow visualization laterally. The patella was everted in extension and osteophytes were excised, a limited lateral release was performed off the lateral border of the patella, and a lateral facetectomy was performed. Moving to the femur we brought the knee into extension and placed retractors around the femur. I opened the canal and inserted the intramedullary josep up the femur to obtain a mechanical axis reference. I cut the femur at 5? relative to the anatomic axis and a +0 mm cut. Retractors were removed and the knee was hyperflexed and externally rotated. Retractors were placed around the tibia and an intramedullary drill was used to open up the canal. An intramedullary reference was used off of the medial side, cutting 4 mm relative to the area of most wear. I noted that there was potentially insufficient slope and that cut while referencing off of the jig. It was challenging to get the smallest spacer block in in terminal extension in the back of the knee however I was able to fit it in the front of the knee. This may be concerned that I had cut inadequate slope. I therefore moved to extramedullary referencing and took a +2 mm cut relative to my initial intramedullary referenced cut. This did cut significant additional slope into the tibia. The varus valgus angle of my extramedullary reference cut was very similar to that of my intramedullary cut. I then placed the smallest spacer block which was a 9 mm spacer block and found that it fit appropriately. I used the soft tissue tensioner and dialed it up to 40 and found that the dial indicated appropriate soft tissue balance. I moved to the femur again and flexed the knee and placed a 3 degree resection drill hole using the measured resection guide. I then placed the tensioner at 90? of flexion with the tensioner flush to the face of the femur and flushed to the face of the tibia and opened it again to 40. This gave me a reading of 15. I had had a reading of 11 in extension so I shifted my flexion gap by 4 mm to equalize my flexion and extension gaps. I sized for a size 5 femur and placed the 4 in 1 block. I used the same spacer block as I had an extension on the size 5 cutting block and internally and externally rotated through the hip and found that I had appropriate equal soft tissue tension between those 2. Being satisfied with this soft tissue tension in flexion I then cut the anterior and posterior and chamfers through the 4 in 1 block. A lamina procurement internship was placed laterally and tensioned to allow removal of the medial meniscus and medial osteophytes. It was then moved laterally to allow resection of the lateral meniscus and lateral osteophytes. I infiltrated the soft tissues with a mixture of ropivacaine epinephrine clonidine and Toradol, about 50 mL which was placed in the VMO patellar tendon MCL and posterior capsule. Trials were placed and I found that flexion and extension gaps were equal, I had minimal medial or lateral opening in either flexion or extension, and the patella tracked appropriately. Being satisfied with this I prepared the tibia. It was a size 3. I drilled for a short stem given the patient's advanced age and relatively high BMI. I irrigated the bone and inserted cement down the tibia. The tibial component with a stem was placed and mallet it down. Moving to the femur, the femur was irrigated and then cemented into place as well. I brought the knee into full extension and allowed the cement to cure. While the cement was curing I performed a low adductor canal block using the residual 10 mm of ropivacaine epinephrine clonidine and Toradol with a blunt-tip needle into the adductor canal in the proximal aspect of the wound. I soaked the soft tissues in a dilute mixture of Betadine and peroxide for 3 minutes. Once the cement was allowed to cure I trialed the knee and determined that I was satisfied with the polyethylene size. I removed additional cement around the femoral and tibial components with a osteotome. I inserted the final polyethylene and was satisfied with the motion and stability of the knee. Tourniquet was let down and hemostasis was achieved. The knee was closed using a combination of 1. Vicryl, double-armed 2. Stratafix, 2-0 Stratafix, 2-0 Vicryl, 3-0 Stratafix. Dermabond and Aquacel were applied. An Praful wrap was applied. The patient was transferred off of the operating table after being awoken from anesthesia and taken to the PACU without discernible complications. Status at Discharge Cognitive/behavioral status at discharge: oriented Functional status at discharge: uses cane/walker Overall status at discharge: patient is back to baseline Exam Vital Signs (past 8 hours): - 04/04/23 07:58 Temperature 97.4 F L Pulse Rate 85 Respiratory Rate 16 Blood Pressure 130/56 L Pulse Oximetry 94 Fraction of Inspired Oxygen 24 Oxygen Delivery Method Nasal Cannula Oxygen Flow Rate 0 Narrative Exam Narrative: Patient is found sitting in a chair. She is able to dorsal and plantar flex her left ankle against resistance. Sensation is grossly intact of the left lower extremity. 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) History of appendectomy Hx of cholecystectomy (1980) History of lumpectomy (~2009) S/P right unicompartmental knee replacement (2015) Social History household members: spouse Smoking Status: Never smoker alcohol intake: current Discharge Assessment & Plan Assessment and Plan Assessment: Status Post Left Knee Arthroplasty Plan of Treatment: Weightbearing as tolerated DC home today if cleared by PT Post-op Medications already received Aspirin DVT prophylaxis Follow up 2 weeks in our clinic for wound check Discharge Plan Discharge Plan Patient Disposition: Home Discharge orders & Medications Discharge Orders: Discharge (Order); Ordered 04/04/23 Ordered By: Art Ho Prescriptions: Continued amlodipine 2.5 mg tablet 2.5 mg PO BEDTIME multivitamin Tablet 1 tab PO DAILY tolterodine 4 mg Capsule,Extended Release 24hr 4 mg PO BEDTIME telmisartan 40 mg Tablet 40 mg PO BID simvastatin [Zocor] 20 mg tablet 20 mg PO DAILY Follow up/Referrals: Marta Lowry MD [Primary Care Provider] - Diet/Activity/Treatments Diet: Diet as Tolerated Activity: Weightbearing as tolerated with assistive device Cold/Heat Therapy: Cold Pack over the Knee to reduce pain and swelling Skin/Wound/Dressing Care Report to your healthcare provider any signs of infection, such as:: chills, fever, night sweats, unusual drainage and unusual redness Dressing: Keep dressing clean and dry. If it becomes dirty, change and replace with gauze dressing. Visit Report/Discharge Packet Instructions: DI for Knee Replacement, DI for Prescription Opioid Use Stand Alone Forms: Patient Portal/API, Surgery Discharge Discharge Data Primary Care Provider: Marta Lowry Attending Provider: Jeferson Norris
--- NOTE | 2023-04-04 13:33 | PC.NURSE ---
Pt is dressed and ready for discharge home with Daughter. IV has been removed. Went over d/c instructions with Pt and Daughter-discussed d/c meds, time of last dose, reviewed stroke education, s/s of infection, keeping dsg intact, showering, icing knee, and follow up appointment. Pt and daughter denied further questions. Pt will be taken out via w/c by DIVER HELPER to POV with Daughter and all belongings.
[2023-04-04] MEDS: ONDANSETRON 4 MG ODT PO (13:57)
== END 2023-04-04 14:15 | disposition home or self-care (01) ==
LOC: OR 06:24 → AC 06:38
PROVIDERS: PCP Internal Medicine; Referring Provider Orthopaedic Surgery Adult Reconstructive Orthopaedic Surgery; Visit Provider Orthopaedic Surgery Adult Reconstructive Orthopaedic Surgery
PROC: 0SRD0JZ Replacement of Left Knee Joint with Synthetic Substitute, Open Approach (ICD-10-PCS; CPT 27447; principal; 2023-04-02 07:45)
DX: M17.12 Unilateral primary osteoarthritis, left knee (principal)
CPT/HCPCS: 27447; 36415; 73560; 85014; 85018; 97110; 97116; 97161; 97530; C1776; J0690; J1100; J2405; J2704

== ENCOUNTER → 2023-04-09 10:58 | Outpatient (CLI) | payer MEDICARE, OTHER, SELFPAY ==
[2023-04-02 12:06] VITALS: BMI 33.8
--- NOTE | 2023-04-09 | DI.US.S_ITS ---
PROCEDURE: US PERIPH VENOUS LOW EXTREM LT INDICATIONS: LLE PAIN ONE WEEK POST TKA TECHNIQUE: Real-time imaging, as well as color and pulse Doppler interrogation, were performed of the lower extremity deep veins from the inguinal ligament to the popliteal fossa, with documentation of the visualized calf veins. COMPARISON: None. FINDINGS: The common femoral, femoral, popliteal, and the visualized calf veins are normally compressible, and free of intraluminal thrombus. Color and pulse Doppler demonstrate normal phasic intraluminal flow. There is normal augmentation response to distal compression maneuver. IMPRESSION: No findings of lower extremity deep venous thrombosis. Dictated by: Carito Kaur M.D. on 04/09/2023 at 18:21 Approved by: Carito Kaur M.D. on 04/09/2023 at 18:22
== END ==
PROVIDERS: PCP Internal Medicine; Referring Provider Orthopaedic Surgery Adult Reconstructive Orthopaedic Surgery; Visit Provider Orthopaedic Surgery Adult Reconstructive Orthopaedic Surgery
DX: M79.672 Pain in left foot (principal)
CPT/HCPCS: 93971

== ENCOUNTER → 2023-07-23 11:01 | Outpatient (CLI) | payer MEDICARE, OTHER, SELFPAY ==
[2023-04-02 12:06] VITALS: BMI 33.8
--- NOTE | 2023-07-23 11:03 | DI.MRI.S_ITS ---
PROCEDURE: MR SHOULDER LT WO CON INDICATIONS: Pain in left shoulder TECHNIQUE: Noncontrast oblique coronal T2 fast spin echo with fat saturation, oblique sagittal T1 spin echo and T2 fast spin echo with fat saturation, axial T1 spin echo and T2 fast spin echo with fat saturation through the shoulder. COMPARISON: [facility] [place], CR, XR SHOULDER 2+ VIEWS LEFT, 02/20/2023, 9:41. [facility] [place], CR, XR SHOULDER 2+ VIEWS LEFT, 07/16/2023, 10:12. FINDINGS: Image quality: There are motion artifacts degrading images. Rotator cuff: There is full-thickness tear of the supraspinatus and infraspinatus tendons with tendon retraction. There is severe supraspinatus muscle atrophy and moderate infraspinatus muscle atrophy. There is intermediate to high-grade partial thickness tear is seen in the superior fibers of the subscapularis tendon. There is moderate subscapularis tendons tendinosis. No subscapularis muscle atrophy. Bones and bursae: No bone marrow contusions or fractures. Moderate acromioclavicular and glenohumeral joint degeneration. The acromion demonstrates conventional anatomy, without an os acromiale. Small to moderate glenohumeral joint effusion. Capsule and soft tissues: There is degenerative tear of the superior labrum There is severe tendinosis of the intra-articular segment of the long head of the biceps tendon. The rotator interval appears normal, without fibrosis. The coracohumeral ligament is normal in thickness. IMPRESSION: 1. Full-thickness tear of the supraspinatus and infraspinatus tendons with tendon retraction and muscle atrophy. 2. Intermediate to high-grade partial-thickness tear of the superior fibers of the subscapularis tendon and moderate tendinosis. No subscapularis muscle atrophy. 3. Severe tendinosis of the long head of the biceps tendon. 4 Moderate acromioclavicular and glenohumeral joint degeneration. 5. Degenerative superior labral tear. Dictated by: Bianca Vernon M.D. on 07/24/2023 at 10:32 Approved by: Bianca Vernon M.D. on 07/24/2023 at 10:40
== END ==
LOC: MRI 11:01
PROVIDERS: PCP Internal Medicine; Referring Provider Orthopaedic Surgery; Visit Provider Orthopaedic Surgery
DX: M75.122 Complete rotator cuff tear or rupture of left shoulder, not specified as traumatic (principal); M19.012 Primary osteoarthritis, left shoulder; M25.512 Pain in left shoulder; S43.432A Superior glenoid labrum lesion of left shoulder, initial encounter
CPT/HCPCS: 73221

== ENCOUNTER → 2024-02-11 11:50 | Outpatient (CLI) | payer MEDICARE, OTHER, SELFPAY ==
[2023-04-02 12:06] VITALS: BMI 33.8
--- NOTE | 2024-02-11 11:51 | DI.MG.S_ITS ---
BILATERAL DIGITAL SCREENING MAMMOGRAM 3D/2D WITH CAD POST LUMPECTOMY: 02/11/2024 CLINICAL: Routine screening. Personal history of left breast cancer. Comparison is made to exams dated: 02/08/2023 mammogram, 01/31/2022 mammogram - [facility], and 11/06/2019 mammogram - [facility]. There are scattered areas of fibroglandular density in both breasts (category b / 25%-50% glandular tissue). Current study was also evaluated with a Computer Aided Detection (CAD) system. There are benign calcifications in both breasts. There also are benign post operative findings in the left breast. No significant masses, calcifications, or other findings are seen in either breast. There has been no significant interval change. IMPRESSION: BENIGN There is no mammographic evidence of malignancy. A 1 year screening mammogram is recommended. This exam was interpreted at Station ID: [id number]. NOTE: For mammograms, a report in lay terms will be sent to the patient. Approximately 15% of breast malignancies will not be visualized mammographically. In the management of a palpable breast mass, a negative mammogram must not discourage biopsy of a clinically suspicious lesion. Electronically Signed By: Eleazar franco/natali:02/11/2024 18:17:12 copy to: MACK CHUN letter sent: Normal Exam ACR BI-RADS Category 2: Benign Finding(s) 3342F
== END ==
LOC: MAMMO 11:51
PROVIDERS: PCP Internal Medicine; Referring Provider Internal Medicine; Visit Provider Internal Medicine
DX: Z12.31 Encounter for screening mammogram for malignant neoplasm of breast (principal); Z85.3 Personal history of malignant neoplasm of breast; R92.323 Mammographic fibroglandular density, bilateral breasts
CPT/HCPCS: 77063; 77067

== ENCOUNTER → 2024-07-15 10:08 | Outpatient (CLI) | payer MEDICARE, OTHER, SELFPAY ==
[2023-04-02 12:06] VITALS: BMI 33.8
--- NOTE | 2024-07-15 10:12 | DI.CT.S_ITS ---
PROCEDURE: CT THORACIC SPINE WO CON INDICATIONS: Low back pain / spondylosis with radiculopathy TECHNIQUE: Noncontrast 3 mm thick sections acquired through the region of interest in the thoracic spine. Sagittal and coronal reformats were then constructed. For radiation dose reduction, the following was used: automated exposure control. COMPARISON: None. FINDINGS: Image quality: Degraded by patient motion artifact. Bones: There is normal overall bony alignment. No acute vertebral body compression fractures. No suspicious sclerotic or lytic bony lesions. Moderate degenerative disc changes throughout the thoracic spine. No severe central canal stenosis. No severe neural foraminal stenosis. Soft tissues: No paravertebral masses or hematomas. Atelectasis in the dependent portions of the lungs. Heart is enlarged. Atherosclerotic calcifications are noted in the aorta, great vessels and the coronary vasculature. IMPRESSION: Multilevel degenerative disc disease. No severe central canal stenosis. No severe neural foraminal stenosis. No neural compression. Dictated by: Maria Del Rosario Chatman MD, PhD on 07/15/2024 at 11:37 Approved by: Maria Del Rosario Chatman MD, PhD on 07/15/2024 at 11:40
--- NOTE | 2024-07-15 10:13 | DI.CT.S_ITS ---
PROCEDURE: CT LUMBAR SPINE WO CON INDICATIONS: Low back pain / spondylosis with radiculopathy TECHNIQUE: Noncontrast 3 mm thick sections acquired from the T12 level to the sacrum. Sagittal and coronal reformats were constructed. For radiation dose reduction, the following was used: automated exposure control. COMPARISON: [facility], MR, MR LUMBAR SPINE WO CON, 06/08/2022, 16:32. [facility] [place], CR, XR LUMBAR SPINE 2 OR 3 VIEWS, 09/11/2023, 10:35. FINDINGS: Image quality: Degraded by patient motion artifact. Bones: There is mild, approximately 5 millimeters of L4-L5 anterolisthesis secondary to facet hypertrophy. No acute vertebral body compression fractures. No suspicious lytic or blastic bony lesions. Mild, approximately 14? of convex right lumbar spine scoliosis. No pars defects moderate degenerative disc changes throughout the lumbar spine. Moderate L4-L5 and L5-S1 facet arthropathy. Mild L3-L4 facet arthropathy. Possible severe L4-L5 central canal stenosis. Severe right L4-L5 neural foraminal stenosis with slight compression of the exiting right L4 nerve root. Severe left L3-L4 neural foraminal stenosis with slight compression of the exiting left L3 nerve root. Soft tissues: No retroperitoneal masses or hematomas. Visualized aorta is normal in caliber. Gallbladder is surgically absent. Colonic diverticula without evidence of diverticulitis. IMPRESSION: Grade 1 L4-L5 degenerative spondylolisthesis. Mild convex right lumbar spine scoliosis. Multilevel degenerative disc disease and facet arthropathy. Possible severe L4-L5 central canal stenosis. Consider MRI of the lumbar spine for additional evaluation. Severe left L3-L4 and right L4-L5 neural foraminal stenosis with slight compression of the exiting left L3 and right L4 nerve roots. Dictated by: Maria Del Rosario Chatman MD, PhD on 07/15/2024 at 11:19 Approved by: Maria Del Rosario Chatman MD, PhD on 07/15/2024 at 11:25
--- NOTE | 2024-07-15 10:13 | DI.RAD.S_ITS ---
PROCEDURE: XR T AND L SPINE 4 TO 5 VIEWS INDICATIONS: SCOLIOSIS SCREENING TECHNIQUE: 2 views acquired of the thoracolumbar spine. COMPARISON: [facility], MR, MR LUMBAR SPINE WO CON, 06/08/2022, 16:32. [facility] [place], CR, XR LUMBAR SPINE 2 OR 3 VIEWS, 09/11/2023, 10:35. FINDINGS: Bones: No acute fractures or dislocations. There is mild, approximately 5 millimeters of L4-L5 anterolisthesis.. Mild, approximately 16? of convex right lumbar spine scoliosis. Visualized inferior ribs appear intact. No suspicious bony lesions. Moderate degenerative disc changes throughout the thoracic and lumbar spine. Moderate lumbar spine facet hypertrophy. Right shoulder reverse arthroplasty. Soft tissues: No suspicious soft tissue calcifications. Cholecystectomy clips. Multiple clips in the left axilla. IMPRESSION: Convex right lumbar spine scoliosis. Multilevel degenerative disc disease. Multilevel facet arthropathy. No fracture. No acute osseous lesion. If symptoms and/or clinical suspicion for pathology persists, evaluation with MRI should be considered for further assessment. Dictated by: Maria Del Rosario Chatman MD, PhD on 07/15/2024 at 11:17 Approved by: Maria Del Rosario Chatman MD, PhD on 07/15/2024 at 11:19
== END ==
PROVIDERS: PCP Internal Medicine; Referring Provider Neurological Surgery; Visit Provider Neurological Surgery
DX: M47.26 Other spondylosis with radiculopathy, lumbar region (principal); M47.27 Other spondylosis with radiculopathy, lumbosacral region; M51.16 Intervertebral disc disorders with radiculopathy, lumbar region; M48.061 Spinal stenosis, lumbar region without neurogenic claudication; M43.16 Spondylolisthesis, lumbar region; M51.34 Other intervertebral disc degeneration, thoracic region; M41.9 Scoliosis, unspecified; K57.90 Diverticulosis of intestine, part unspecified, without perforation or abscess without bleeding; M54.50 Low back pain, unspecified; I51.7 Cardiomegaly; I70.0 Atherosclerosis of aorta; J98.11 Atelectasis; Z90.49 Acquired absence of other specified parts of digestive tract
CPT/HCPCS: 72083; 72128; 72131

== ENCOUNTER 2024-07-31 11:48 | Emergency (ER) | payer MEDICARE, OTHER, SELFPAY ==
[2023-04-02 12:06] VITALS: BMI 33.8
[2024-07-31] VITALS (28 sets, daily range): BP systolic 140–173; BP diastolic 63–82; PULSE 68–93; RESP 16–25; TEMP 36.4–36.9; O2SAT 93–99; BMI 33.0
--- NOTE | 2024-07-31 12:19 | DI.RAD.S_ITS ---
PROCEDURE: XR CHEST 1V INDICATIONS: suspected sepsis TECHNIQUE: One view of the chest was acquired. COMPARISON: None. FINDINGS: Surgical changes and devices: Prior left breast surgery and axillary node excision. Surgical clips right upper quadrant likely reflect prior cholecystectomy.. Lungs and pleura: Lungs are difficult to accurately assess due to prominent reduced inspiratory volume but no definite pneumonia or effusion is seen.. No pleural effusions or pneumothorax. Mediastinum: Mediastinal contours appear normal. Heart size is normal. Bones and chest wall: No suspicious bony lesions. Overlying soft tissues appear unremarkable. IMPRESSION: The inspiratory volume is prominently reduced, but a definite pneumonia or pleural effusion is not seen. Postsurgical changes as noted. Dictated by: Billy Majano M.D. on 07/31/2024 at 12:59 Approved by: Billy Majano M.D. on 07/31/2024 at 13:00
--- NOTE | 2024-07-31 12:19 | EKG_ITS ---
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
[2024-07-31 12:53] LABS: Prothrombin Time 11.4 SECONDS (9.4-12.5)
[2024-07-31 12:56] LABS: Add Manual Diff / Slide Review NO; Basophils Absolute Auto 0 /uL (0-100); Basophils Percent Auto 0.6 % (0-2); Eosinophils Absolute Auto 300 /uL (0-450); Eosinophils Percent Auto 5.6 % (2-4); Hematocrit 32.2 % (36-46); Lymphocytes Absolute Auto 900 /uL (1100-4500); Lymphocytes Percent Auto 15.8 % (25-40); Mean Corpuscular HGB Conc 34.1 % (30-36); Mean Corpuscular Hemoglobin 31.6 PG (26-34); Mean Corpuscular Volume 92.7 fL (80-100); Monocytes Absolute Auto 800 /uL (0-900); Monocytes Percent Auto 14.3 % (3-14); Neutrophils Absolute Auto 3500 /uL (1500-7000); Neutrophils Percent Auto 63.7 % (50-75); PTT Partial Thromboplastin Tim 31 SECONDS (25.1-36.5); Platelet Count 237 X10^3/uL (150-400); Red Blood Cell Count 3.47 X10^6/uL (4.0-5.2); Red Cell Distribution Width 13.6 % (11.6-14.8); White Blood Cell Count 5.5 X10^3/uL (4.5-11.0)
[2024-07-31 12:58] LABS: Alanine Aminotransferase 83 IU/L (<35); Albumin 3.7 g/dL (3.5-5.0); Albumin Globulin Ratio 1.3 (1.0-2.8); Alkaline Phosphatase 79 U/L (38-126); Aspartate Aminotransferase 93 IU/L (14-36); BUN Creatinine Ratio 26.2 (6-22); Bilirubin Total 1.1 mg/dL (0.2-1.3); Blood Urea Nitrogen 16 mg/dL (7-17); Calcium 9.1 mg/dL (8.4-10.2); Carbon Dioxide 30 mmol/L (22-32); Chloride 98 mmol/L (98-107); Estimated Glomerular Filt Rate > 60 mL/min (>60); Globulin 2.9 g/dL (1.7-4.1); Glucose 122 mg/dL (80-110); HEMOLYSIS < 15 (0-50); Lipase 50 U/L (23-300); Sodium 134 mmol/L (137-145); Total Protein 6.6 g/dL (6.3-8.2)
[2024-07-31 13:03] LABS: Appearance Urine UA CLEAR; Bilirubin Urine UA NEGATIVE (NEGATIVE); Color Urine UA YELLOW; Glucose Urine UA NEGATIVE (Negative); Ketones Urine UA NEGATIVE (NEGATIVE); Leukocyte Esterase Urine UA NEGATIVE (NEGATIVE); Nitrite Urine UA NEGATIVE (Negative); Occult Blood Urine UA 3+ (Negative); Protein Urine UA 2+ (Negative); Urobilinogen Urine UA >=8.0 E.U./dL (0.2)
[2024-07-31 13:04] LABS: Urine Volume 10mL (spun)
[2024-07-31 13:05] LABS: Bacteria Urine None Seen; Culture Indicated Urine Cult Not Indicated; RBC Urine 5-10/HPF (0-5/HPF); Squamous Epithelial Cell Urine None Seen (0-5/HPF); WBC Urine None Seen (0-5/HPF)
[2024-07-31 13:15] LABS: Procalcitonin 0.074 ng/mL (<0.5)
[2024-07-31] MEDS: SODIUM CHLORIDE 0.9% 1,000 ML 1000 ML IV (14:34)
--- NOTE | 2024-07-31 14:35 | PC.NURSE ---
Patient here with son reports 3 days of intermittant/wax&wane confusion and hallucinations w word finding difficulty, poor sleep. last 2 days were worst. Currently Lucid, no hallucinations, orient x4, alert. NIH 0 GCS 15
--- NOTE | 2024-07-31 15:03 | ED.GENADULT ---
HPI - General Adult General Chief complaint: Altered Mental Status Stated complaint: sx 07/24 possible UTI, hallucinations Time Seen by Provider: 07/31/24 14:53 Source: patient Mode of arrival: Ambulatory History of Present Illness HPI narrative: Patient brought here by son for complaints of visual hallucinations but mostly patient is here for placement of either home health or a new rehab facility. Patient was seeing ?feathers? in the air this past week. She states she has had no sleep at this rehabilitation center since Sunday. She had back surgery [facility] this past weekend. Has been ambulatory. Was sent to [facility] and patient and son are not happy with the care there. Denies any auditory hallucinations. Currently not hallucinating. She has no psychiatric history. No prior history hallucinations. No recent illness fever chills cough cold congestion nausea or vomiting. No urinary complaints. She is awake alert oriented x4 and cooperative. animal control licensing worker Delmi is at bedside talking to them as well. Related Data Home Medications Medication Instructions Recorded Confirmed tolterodine 4 mg capsule,extended 4 mg PO DAILY 08/31/20 07/31/24 release 24 hr amlodipine 2.5 mg tablet 2.5 mg PO DAILY 04/17/22 07/31/24 simvastatin 20 mg tablet (Zocor) 20 mg PO BEDTIME 04/17/22 07/31/24 oxycodone-acetaminophen 2.5 mg-325 1 tab PO Q4H PRN Pain (Scale Score 07/31/24 07/31/24 mg tablet 4-6) tizanidine 2 mg tablet 2 mg PO Q6HR PRN Muscle Spasm 07/31/24 07/31/24 Allergies Allergy/AdvReac Type Severity Reaction Status Date / Time Sulfa (Sulfonamide Allergy Severe Anaphylaxis Verified 07/31/24 12:13 Antibiotics) sulfamoxole Allergy Severe Anaphylaxis Verified 07/31/24 12:13 Review of Systems Review of Systems Narrative: GENERAL: Negative chills, fatigue, malaise, fever, sweats. HEENT: Negative sinus pain, ear pain, sore throat RESPIRATORY: Negative dyspnea, cough CARDIOVASCULAR: Negative chest pain, palpitations GASTROINTESTINAL: Negative nausea, vomiting, abdominal pain : Negative dysuria, frequency, hematuria MUSCULOSKELETAL: Negative muscle or bony pain SKIN: Negative rash, skin lesions NEUROLOGIC: Negative weakness, numbness Psychiatry: Positive visual hallucinations ROS Unobtainable: All systems reviewed & are unremarkable except as noted in HPI and below Patient History Medical History (Updated 08/01/24 @ 06:59 by Vitaliy Hodge MD) History of COVID-19 (01/2023) GERD (gastroesophageal reflux disease) HLD (hyperlipidemia) HTN (hypertension) Rotator cuff tear arthropathy of right shoulder Impingement syndrome, shoulder, left Rotator cuff arthropathy of right shoulder History of breast cancer (2009) Surgical History (Updated 03/26/23 @ 08:47 by Stephanie Winn RN) History of esophagogastroduodenoscopy (EGD) (05/22/22) 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 EYES: Pupils equal round ENT: Mucous membranes moist. NECK: Trachea midline. CARDIOVASCULAR: Regular rate and rhythm RESPIRATORY: Clear to auscultation. Breath sounds equal bilaterally. No wheezes, rales, or rhonchi. GASTROINTESTINAL: Abdomen soft, non-tender EXTREMITIES: No gross deformities. BACK: No flank tenderness. NEURO: AOx4. Clear speech. Fast exam is negative. Light touch intact bilateral face hands and legs strong equal make up editor. SKIN: Warm and dry PSYCH: Not anxious, is cooperative, no active auditory or visual hallucinations. Not anxious. Initial Vital Signs Initial Vital Signs: Vital Signs Temperature 97.5 F L 07/31/24 12:13 Pulse Rate 92 H 07/31/24 12:13 Respiratory Rate 16 07/31/24 12:13 Blood Pressure 140/63 07/31/24 12:13 Pulse Oximetry 96 07/31/24 12:13 Oxygen Delivery Method Room Air 07/31/24 12:13 Course Orders Ordered: Discontinued Medications Amlodipine Besylate (Amlodipine 5 Mg Tablet) 2.5 mg PO DAILY BRET Last Admin: 08/01/24 08:54 Dose: 2.5 mg Documented By: KM Bisacodyl (Bisacodyl 5 Mg Tablet) 10 mg PO NOW ONE Stop: 07/31/24 20:42 Last Admin: 07/31/24 21:00 Dose: Not Given Documented By: EVERARDO Sodium Chloride (Normal Saline 0.9%) 1,000 mls @ 1,000 mls/hr IV BOLUS ONE Stop: 07/31/24 13:18 Last Infusion: 07/31/24 15:40 Dose: Infused Documented By: EVERARDO(2) Admin: 07/31/24 14:34 Dose: 1,000 mls/hr Documented By: EVERARDO(2) Ondansetron HCl (Ondansetron 4 Mg/2 Ml Inj) 4 mg IV NOW PRN PRN Reason: Nausea And Vomiting Ondansetron HCl (Ondansetron 4 Mg Odt) 4 mg SL NOW PRN PRN Reason: Nausea And Vomiting Oxycodone/Acetaminophen (Oxycodone/Acetaminophen 5/325 Tablet) 1 tab PO Q4H BRET Last Admin: 08/01/24 08:54 Dose: 1 tab Documented By: Admin: 08/01/24 04:56 Dose: 1 tab Documented By: Admin: 08/01/24 00:14 Dose: 1 tab Documented By: EVERARDO(2) Admin: 07/31/24 20:47 Dose: 1 tab Documented By: EVERARDO Polyethylene Glycol (Polyethylene Glycol 3350 17 Gm Powd.Pack) 17 gm PO NOW ONE Stop: 07/31/24 20:44 Last Admin: 07/31/24 20:47 Dose: 17 gm Documented By: EVERARDO Tizanidine HCl (Tizanidine 4 Mg Tablet) 2 mg PO Q6HR PRN PRN Reason: Muscle Spasm Last Admin: 08/01/24 04:57 Dose: 2 mg Documented By: Admin: 08/01/24 00:13 Dose: 2 mg Documented By: EVERARDO(2) Vital Signs Vital signs: Vital Signs - 8 hr 08/01/24 00:00 08/01/24 00:00 08/01/24 00:20 Temperature 98.5 F Pulse Rate 90 Respiratory Rate 20 Blood Pressure 146/66 H Pulse Oximetry 94 Oxygen Delivery Method 08/01/24 07:35 Temperature Pulse Rate 84 Respiratory Rate 16 Blood Pressure 125/60 Pulse Oximetry 97 Oxygen Delivery Method Room Air Medical Decision Making Lab Data 07/31/24 12:28 07/31/24 12:28 Labs: Lab Results 07/31/24 07/31/24 07/31/24 Range/Units 12: 12: 12:33 WBC 5.5 (4.5-11.0) X10^3/uL RBC 3.47 L (4.0-5.2) X10^6/uL Hgb 11.0 L (12.0-16.0) g/dL Hct 32.2 L (36-46) % MCV 92.7 (80-100) fL MCH 31.6 (26-34) PG MCHC 34.1 (30-36) % RDW 13.6 (11.6-14.8) % Plt Count 237 (150-400) X10^3/uL Neut % (Auto) 63.7 (50-75) % Lymph % (Auto) 15.8 L (25-40) % [place] % (Auto) 14.3 H (3-14) % Eos % (Auto) 5.6 H (2-4) % Baso % (Auto) 0.6 (0-2) % Neut # (Auto) 3500 (0141-2741) /uL Lymph # (Auto) 900 L (2785-4147) /uL [place] # (Auto) 800 (0-900) /uL Eos # (Auto) 300 (0-450) /uL Baso # (Auto) 0 (0-100) /uL PT 11.4 (9.4-12.5) SECONDS INR 1.0 (0.9-1.3) APTT 31 (25.1-36.5) SECONDS Sodium 134 L (137-145) mmol/L Potassium 4.0 (3.4-5.1) mmol/L Chloride 98 (98-107) mmol/L Carbon Dioxide 30 (22-32) mmol/L BUN 16 (7-17) mg/dL Creatinine 0.61 (0.52-1.04) mg/dL Estimated GFR > 60 (>60) mL/min BUN/Creatinine Ratio 26.2 H (6-22) Glucose 122 H (80-110) mg/dL Lactate 1.0 (0.7-2.1) mmol/L Calcium 9.1 (8.4-10.2) mg/dL Total Bilirubin 1.1 (0.2-1.3) mg/dL AST 93 H (14-36) IU/L ALT 83 H (<35) IU/L Alkaline Phosphatase 79 (38-126) U/L Total Protein 6.6 (6.3-8.2) g/dL Albumin 3.7 (3.5-5.0) g/dL Globulin 2.9 (1.7-4.1) g/dL Albumin/Globulin Ratio 1.3 (1.0-2.8) Lipase 50 (23-300) U/L Procalcitonin 0.074 (<0.5) ng/mL TSH 2.93 (0.47-4.68) uIU/mL Urine Color Yellow Urine Appearance Clear Urine pH 7.0 (4.5-8.0) Ur Specific [place] 1.010 (1.000-1.035) Urine Protein 2+ H (Negative) Urine Glucose (UA) Negative (Negative) g/dL Urine Ketones Negative (NEGATIVE) Urine Occult Blood 3+ H (Negative) Urine Nitrate Negative (Negative) Urine Bilirubin Negative (NEGATIVE) Urine Urobilinogen >=8.0 (0.2) E.U./dL Ur Leukocyte Esterase Negative (NEGATIVE) Urine RBC 5-10/hpf H (0-5/HPF) Urine WBC None seen (0-5/HPF) Ur Squamous Epith Cells None seen (0-5/HPF) Urine Bacteria None seen (None) Ur Culture Indicated? Cult not indicated Vol Urine Centrifuged 10ml (spun) U Opiates 300ng/mL cut (Negative) Ur Oxycodone Screen (Negative) Urine Methadone Screen (Negative) Ur Barbiturates Screen (Negative) U Tricyclic Antidepress (Negative) Ur Phencyclidine Scrn (Negative) Ur Amphetamines Screen (Negative) U Methamphetamines Scrn (Negative) Ur MDMA Scrn (Ecstasy) (Negative) U Benzodiazepines Scrn (Negative) Urine Cocaine Screen (Negative) U Marijuana (THC) Screen (Negative) Urine Specific [place] (Normal) Ethyl Alcohol < 10 ( - 10) mg/dL Ur Creatinine (Normal) 07/31/24 Range/Units 15:37 WBC (4.5-11.0) X10^3/uL RBC (4.0-5.2) X10^6/uL Hgb (12.0-16.0) g/dL Hct (36-46) % MCV (80-100) fL MCH (26-34) PG MCHC (30-36) % RDW (11.6-14.8) % Plt Count (150-400) X10^3/uL Neut % (Auto) (50-75) % Lymph % (Auto) (25-40) % [place] % (Auto) (3-14) % Eos % (Auto) (2-4) % Baso % (Auto) (0-2) % Neut # (Auto) (2087-1977) /uL Lymph # (Auto) (4921-9936) /uL [place] # (Auto) (0-900) /uL Eos # (Auto) (0-450) /uL Baso # (Auto) (0-100) /uL PT (9.4-12.5) SECONDS INR (0.9-1.3) APTT (25.1-36.5) SECONDS Sodium (137-145) mmol/L Potassium (3.4-5.1) mmol/L Chloride (98-107) mmol/L Carbon Dioxide (22-32) mmol/L BUN (7-17) mg/dL Creatinine (0.52-1.04) mg/dL Estimated GFR (>60) mL/min BUN/Creatinine Ratio (6-22) Glucose (80-110) mg/dL Lactate (0.7-2.1) mmol/L Calcium (8.4-10.2) mg/dL Total Bilirubin (0.2-1.3) mg/dL AST (14-36) IU/L ALT (<35) IU/L Alkaline Phosphatase (38-126) U/L Total Protein (6.3-8.2) g/dL Albumin (3.5-5.0) g/dL Globulin (1.7-4.1) g/dL Albumin/Globulin Ratio (1.0-2.8) Lipase (23-300) U/L Procalcitonin (<0.5) ng/mL TSH (0.47-4.68) uIU/mL Urine Color Urine Appearance Urine pH Normal (4.5-8.0) Ur Specific [place] (1.000-1.035) Urine Protein (Negative) Urine Glucose (UA) (Negative) g/dL Urine Ketones (NEGATIVE) Urine Occult Blood (Negative) Urine Nitrate (Negative) Urine Bilirubin (NEGATIVE) Urine Urobilinogen (0.2) E.U./dL Ur Leukocyte Esterase (NEGATIVE) Urine RBC (0-5/HPF) Urine WBC (0-5/HPF) Ur Squamous Epith Cells (0-5/HPF) Urine Bacteria (None) Ur Culture Indicated? Vol Urine Centrifuged U Opiates 300ng/mL cut Negative (Negative) Ur Oxycodone Screen Positive H (Negative) Urine Methadone Screen Negative (Negative) Ur Barbiturates Screen Negative (Negative) U Tricyclic Antidepress Positive H (Negative) Ur Phencyclidine Scrn Negative (Negative) Ur Amphetamines Screen Negative (Negative) U Methamphetamines Scrn Negative (Negative) Ur MDMA Scrn (Ecstasy) Negative (Negative) U Benzodiazepines Scrn Negative (Negative) Urine Cocaine Screen Negative (Negative) U Marijuana (THC) Screen Negative (Negative) Urine Specific [place] Normal (Normal) Ethyl Alcohol ( - 10) mg/dL Ur Creatinine Normal (Normal) Imaging Data Chest x-ray: Radiologist's Impression: [place] [id number] XRay Report Signed Patient: Laura Ludwig MR#: [id number] : 1945 Acct:[id number] Age/Sex: 78 / F Date of Service: 07/31/24 Loc: ED Accession Number: [id number] Procedure: XR chest 1V Ordering Provider: Vitaliy Hodge MD PROCEDURE: XR CHEST 1V INDICATIONS: suspected sepsis TECHNIQUE: One view of the chest was acquired. COMPARISON: None. FINDINGS: Surgical changes and devices: Prior left breast surgery and axillary node excision. Surgical clips right upper quadrant likely reflect prior cholecystectomy.. Lungs and pleura: Lungs are difficult to accurately assess due to prominent reduced inspiratory volume but no definite pneumonia or effusion is seen.. No pleural effusions or pneumothorax. Mediastinum: Mediastinal contours appear normal. Heart size is normal. Bones and chest wall: No suspicious bony lesions. Overlying soft tissues appear unremarkable. IMPRESSION: The inspiratory volume is prominently reduced, but a definite pneumonia or pleural effusion is not seen. Postsurgical changes as noted. Dictated by: Billy Majano M.D. on 07/31/2024 at 12:59 Approved by: Billy Majano M.D. on 07/31/2024 at 13:00 [facility] Narrative Medical decision making narrative: Patient brought here by son for complaints of visual hallucinations but mostly patient is here for placement of either home health or a new rehab facility. Patient was seeing ?feathers? in the air this past week. She states she has had no sleep at this rehabilitation center since Sunday. She had back surgery [facility] this past weekend. Has been ambulatory. Was sent to [facility] and patient and son are not happy with the care there. Denies any auditory hallucinations. Currently not hallucinating. She has no psychiatric history. No prior history hallucinations. No recent illness fever chills cough cold congestion nausea or vomiting. No urinary complaints. She is awake alert oriented x4 and cooperative. animal control licensing worker Delmi is at bedside talking to them as well. After history and exam, social work consult physical therapy consult CBC CMP urinalysis TSH drug screen alcohol EKG [facility] Medical records reviewed: No recent visit for this complaint Differential considered: Includes but not limited to failure to thrive postoperative pain Lab Test results independently reviewed as above. Pertinent findings: WBC 5.5 hemoglobin 11 hematocrit 32.2 sodium 134 potassium 4.0 BUN 16 creatinine 0.61 GFR greater than 60 urinalysis negative leukocytes negative nitrate TSH 2.93 procalcitonin 0.074 alcohol negative drug screen positive oxycodone Independently reviewed EKG sinus rhythm rate [address] elevation or depression Imaging studies independently reviewed: Chest x-ray no acute finding Consultations: Delmi, with social work has seen patient. Home health has been set up as desired by patient and son. However we will not be able to start until tomorrow. Treatments: Normal saline Re-evaluations: 6:15 p.m.. Patient and son desire observation overnight for home health tomorrow. They are not safe to go home at this time they state. Discussion: Appropriate for discharge home. Exam and laboratory studies are reassuring. No CT imaging indicated this time for head CT or MRI. Patient has been tired and fatigued. No hallucinations during course of stay here. The hallucinations of feathers likely due to sleep deprivation as patient admits has not slept very well since going to the rehab facility. Patient and son are very happy about getting home health care. They desire discharge home. Return precautions reviewed. Diagnosis: Fatigue 6:[address] Hodge: Sign out to Dr. Bee, patient here boarding overnight, will be discharged tomorrow morning for home health. Patient was not comfortable and son was not comfortable for discharge home tonight August 01 2024 at 7:[address] Hodge: Sign out from Dr. Bee, new issues overnight. Patient will be discharged today for home health as [employer] has been able to apply for patient services. It will be starting this weekend. 7:30 a.m.. Patient has no complaints at this time. Agrees for discharge home. Agrees with workup that was done here today. She desires discharge home this morning. She said she got very good sleep in a long time last night. She slept very soundly. She is smiling. No hallucinations overnight. She is ready for going home this morning. Discharge Plan Departure Patient Disposition: Home Clinical Impression: Fatigue Qualifiers: Fatigue type: unspecified Qualified Code(s): R53.83 - Other fatigue Instructions: DI for Fatigue Activity Restrictions/Additional Instructions: I am glad you are feeling better. I am glad you got good rest. Please see your providers next week for re-evaluation. [employer] has provided home health services for you. They should be contacting you. Continue home medications. Return if worse if any questions or concerns Prescriptions: No Action amlodipine 2.5 mg tablet 2.5 mg PO DAILY tolterodine 4 mg Capsule,Extended Release 24hr 4 mg PO DAILY simvastatin [Zocor] 20 mg tablet 20 mg PO BEDTIME tizanidine 2 mg Tablet 2 mg PO Q6HR PRN (Reason: Muscle Spasm) oxycodone-acetaminophen 2.5-325 mg Tablet 1 tab PO Q4H PRN (Reason: Pain (Scale Score 4-6)) Referrals: Marta Lowry MD [Primary Care Provider] - Stand Alone Forms: Patient Portal/API/Survey
[2024-07-31 15:35] LABS: Ethanol (ETOH) < 10 mg/dL
[2024-07-31 15:53] LABS: UR Morphine/Opiate cutoff 300 Negative (Negative); Ur Creatinine Normal (Normal); Ur Specific Gravity Normal (Normal); Urine Amphetamines Negative (Negative); Urine Barbiturates Negative (Negative); Urine Benzodiazepines Negative (Negative); Urine Cocaine Negative (Negative); Urine MDMA Negative (Negative); Urine Methadone Negative (Negative); Urine Methamphetamines Negative (Negative); Urine Oxycodone Positive (Negative); Urine Phencyclidine Negative (Negative); Urine Tetrahydrocannabinol Negative (Negative); Urine Tricyclic Antidepressant Positive (Negative); Urine pH Normal (Normal)
[2024-07-31 16:15] LABS: Thyroid Stimulating Hormone 2.93 uIU/mL (0.47-4.68)
--- NOTE | 2024-07-31 19:08 | CM.SWNOTE ---
ED INDUSTRIAL TECHNICIAN DCP Assessment Note: Pt is a 78yo female, resident of [place], is here in the ED due to complications at a SNF placement and possible UTI/AMS. Pt lives in a house with her . Pt's Primary Care Provider is Dr. Urban Oates MD and insurance is Medicare and [employer]. Reviewed chart and discussed with multidisciplinary team pt's medical status and initial discharge needs. INDUSTRIAL TECHNICIAN consulted for possible SNF placement or home health referral. DCP met w/patient at bedside; introduced self and role. Present in the room is pt's son, Aleksandr (ph#[phone]). Patient was found in bed, alert and oriented, cooperative with assessment. Pt confirmed living situation and good support in and son, pt's daughter lives in [place] and will return on Sunday, 08/04 to assist with rehabilitation. It is reported pt is s/p lumar fusion and was discharged to [facility] for SNF placement. After a few days, pt did not feel safe and asked to discharge home. Pt and family are now requesting home health referral. Pt son states he has spoken with [facility] and they have privately paid for a home health aid for 12 hours/day. They are requesting this INDUSTRIAL TECHNICIAN send referral for other disciplines (RN, PT, OT). Pt son said he is renting a hospital bed, elevated toilet seat that will be delivered tomorrow, 08/01. ED INDUSTRIAL TECHNICIAN sent referral to [facility], spoke with Bridgette at Intake. F2F signed by Dr. Hodge and sent to Intake team via secure email. Pt son and pt state they are nervous about pt to discharge home with no support or proper DME. Dr. Hodge agreeable with pt remaining in ED until safe discharge identified at home and Home health aide can begin services. Plan: Pt to board in ED until 08/01 when DME and home health services begin. CM team will follow closely for coordination of discharge plans. KRISTIN Arroyo
[2024-07-31] MEDS: polyethylene glycoL 3350 17 GM POWD.PACK PO (20:47)
[2024-07-31] MEDS: OXYCODONE/ACETAMINOPHEN 5/325 TABLET 1 TAB PO (20:47)
[2024-08-01] VITALS: BP 146/66; PULSE 90; RESP 20; O2SAT 94
[2024-08-01] MEDS: TIZANIDINE 4 MG TABLET 2 MG PO ×2 (00:13→04:57)
[2024-08-01] MEDS: OXYCODONE/ACETAMINOPHEN 5/325 TABLET 1 TAB PO ×3 (00:14→08:54)
[2024-08-01 00:20] VITALS: TEMP 36.9
[2024-08-01 07:35] VITALS: BP 125/60; PULSE 84; RESP 16; O2SAT 97
--- NOTE | 2024-08-01 07:38 | PC.NURSE ---
Spoke to both pt son and spouse about ride home. They will be here around 0830 this morning. They will follow up with Surgeon or home health nurse for further instructions.
[2024-08-01] MEDS: AMLODIPINE 5 MG TABLET 2.5 MG PO (08:54)
[2024-08-01 09:06] VITALS: BP 102/69; PULSE 82; RESP 18; O2SAT 96
== END 2024-08-01 09:08 | disposition home or self-care (01) ==
PROVIDERS: Emergency Provider Emergency Medicine; PCP Internal Medicine
DX: R53.83 Other fatigue (principal)
CPT/HCPCS: 36415; 71045; 80053; 80305; 80320; 81001; 83605; 83690; 84145; 84443; 85025; 85610; 85730; 87040; 93005; 96360; 99284

== ENCOUNTER → 2024-08-08 12:34 | Outpatient (CLI) | payer MEDICARE, OTHER, SELFPAY ==
[2023-04-02 12:06] VITALS: BMI 33.8
--- NOTE | 2024-08-08 13:46 | DI.RAD.S_ITS ---
PROCEDURE: XR PELVIS 1-2V INDICATIONS: PAIN TECHNIQUE: 2 view(s) of the pelvis acquired. COMPARISON: None. FINDINGS: Bones: Hardware is present within the lumbosacral spine spanning the L4 through S1 levels with bilateral posterior fixation screws and interbody disc spacers noted. Skin sukhwinder are noted bilaterally and posteriorly. No fractures or dislocations. No suspicious bony lesions. Soft tissues: Visualized bowel gas pattern is normal. No suspicious soft tissue calcifications. IMPRESSION: No evidence of hardware complication or acute osseous abnormality. Postsurgical changes noted. Dictated by: Nakul Smith M.D. on 08/09/2024 at 10:51 Approved by: Nakul Smith M.D. on 08/09/2024 at 10:53
== END ==
PROVIDERS: PCP Internal Medicine; Referring Provider Neurological Surgery; Visit Provider Neurological Surgery
DX: M47.26 Other spondylosis with radiculopathy, lumbar region (principal); M51.16 Intervertebral disc disorders with radiculopathy, lumbar region; Z98.1 Arthrodesis status
CPT/HCPCS: 72170

== ENCOUNTER → 2024-10-02 09:50 | Outpatient (CLI) | payer MEDICARE, OTHER, SELFPAY ==
[2023-04-02 12:06] VITALS: BMI 33.8
--- NOTE | 2024-10-02 09:54 | DI.RAD.S_ITS ---
PROCEDURE: XR SACRUM COCCYX MIN 2V INDICATIONS: PAIN TECHNIQUE: 3 views of the sacrum and coccyx acquired. COMPARISON: None. FINDINGS: Bones: No fractures or dislocations. No suspicious bony lesions. Surgical fusion of the lumbosacral spine and pelvis, without hardware complication. Mild degenerative changes of the sacroiliac joints. Soft tissues: Visualized bowel gas pattern is normal. No suspicious soft tissue densities. IMPRESSION: Mild degenerative changes of the sacroiliac joints. Dictated by: Ramses Magaña M.D. on 10/02/2024 at 16:58 Approved by: Ramses Magaña M.D. on 10/02/2024 at 16:59
== END ==
PROVIDERS: PCP Family Medicine; Referring Provider Neurological Surgery; Visit Provider Neurological Surgery
DX: M47.26 Other spondylosis with radiculopathy, lumbar region (principal); M47.28 Other spondylosis with radiculopathy, sacral and sacrococcygeal region; M51.16 Intervertebral disc disorders with radiculopathy, lumbar region
CPT/HCPCS: 72220

== ENCOUNTER → 2024-10-17 09:24 | Outpatient (CLI) | payer MEDICARE, OTHER, SELFPAY ==
[2023-04-02 12:06] VITALS: BMI 33.8
--- NOTE | 2024-10-17 09:25 | DI.NM.S_ITS ---
PROCEDURE: NM BONE 3 PHASE RADIOPHARMACEUTICAL: 22 mCi Tc-99m MDP IV. INDICATIONS: CHRONIC PAIN LT TOTAL KNEE/EVAL FOR LOOSENING TECHNIQUE: Multiple bone scintigrams were obtained after intravenous injection of Tc-99m MDP, including flow, blood pool, and delayed images centered to the region of interest. COMPARISON: [facility] [place], CR, XR KNEE 4+ VIEWS LEFT, 09/25/2024, 11:49. FINDINGS: The perfusion images demonstrate no areas of significantly increased perfusion. The blood pool images demonstrate mild hyperemia in the left knee region anterosuperiorly. The delayed images demonstrate left total knee arthroplasty as well as medial hemiarthroplasty on the right. No abnormal activity on the right. On the left there is significantly increased activity in the patellofemoral compartment. No other areas of abnormal osseous or soft tissue activity seen IMPRESSION: 1. Significantly increased activity in the left patellar femoral compartment, may be due to abnormal patellar tracking or other patellar abnormality, as no definite patellar component seen on radiographs. 2. No other significant activity to suggest loosening or infection. Dictated by: Garry Santana M.D. on 10/18/2024 at 20:50 Approved by: Garry Santana M.D. on 10/18/2024 at 20:56
== END ==
LOC: NUCM 09:24
PROVIDERS: PCP Family Medicine; Referring Provider Orthopaedic Surgery Foot and Ankle Surgery; Visit Provider Orthopaedic Surgery Foot and Ankle Surgery
DX: T84.84XD Pain due to internal orthopedic prosthetic devices, implants and grafts, subsequent encounter (principal); Y79.2 Prosthetic and other implants, materials and accessory orthopedic devices associated with adverse incidents; Z96.653 Presence of artificial knee joint, bilateral
CPT/HCPCS: 78315; A9503

== ENCOUNTER → 2025-04-22 14:46 | Outpatient (CLI) | payer MEDICARE, OTHER, SELFPAY ==
[2023-04-02 12:06] VITALS: BMI 33.8
--- NOTE | 2025-04-22 14:47 | DI.MG.S_ITS ---
MM screening mammo BI: 04/22/2025. BI-RADS: 2 CLINICAL: 79-year old female for bilateral screening mammogram. No Tyrer-Cuzick risk score calculation due to the patient's personal history of breast cancer. Patient reports a history of left breast carcinoma diagnosed at age 70. Status-post left lumpectomy with radiation therapy and chemotherapy. No first-degree family history of breast cancer. The patient had a prior left breast biopsy. PRIOR EXAMS 02/11/2024, 02/08/2023, 01/31/2022, 01/10/2021, 11/06/2019. MAMMOGRAPHY TECHNIQUE: 2D and 3D (tomosynthesis) digital mammographic views obtained, with additional images as needed for full coverage. Current study was also evaluated with a Computer Aided Detection (CAD) system. DENSITY B. There are scattered areas of fibroglandular density. MAMMOGRAPHY FINDINGS Right: Benign-appearing calcifications noted on the right. Typically- benign vascular calcifications also noted. Left: Surgical clips present on the left. Benign-appearing calcifications and post-surgical changes noted on the left. Typically-benign vascular calcifications also noted. IMPRESSION: * No evidence of malignancy with benign findings. RECOMMENDATIONS Bilateral * Annual screening mammography. OVERALL ASSESSMENT CATEGORY BI-RADS-2: Benign. [employer] recommends annual screening mammography beginning at age 40 for women with average risk of breast cancer. ELECTRONICALLY SIGNED: Eleazar Leiva M.D. on 04/23/2025 at 07:25:04 AM PT Interpreting Station ID: [id number]
== END ==
LOC: MAMMO 14:47
PROVIDERS: PCP Family Medicine; Referring Provider Family Medicine; Visit Provider Family Medicine
DX: Z12.31 Encounter for screening mammogram for malignant neoplasm of breast (principal); R92.1 Mammographic calcification found on diagnostic imaging of breast; Z85.3 Personal history of malignant neoplasm of breast
CPT/HCPCS: 77063; 77067